=== PATIENT | female | born 1940 | race Caucasian/White ===

== ENCOUNTER → 2024-11-16 | Outpatient (REF) | payer MEDICARE, SELFPAY ==
[2024-11-16 09:54] LABS: Hematocrit 39.2 % (37-47); Hemoglobin 12.9 g/dL (12.0-15.0); Mean Corp Hgb Conc 32.9 g/dL (32-36); Mean Corpuscular Hgb 32.1 pg (27.0-32.0); Mean Corpuscular Volume 97.5 fL (81-99); Mean Platelet Vol. 10.8 fl (6.2-12.0); Platelet Count 251 K/mm3 (150-450); RBC Distribution Width CV 13.4 % (11.6-14.6); RBC Distribution Width SD 48.3 fl (35.1-43.9); Red Blood Count 4.02 M/mm3 (4.2-5.4); White Blood Count 9.9 K/mm3 (4.4-11.0)
[2024-11-16 10:14] LABS: Anion Gap 13 (5-15); BUN 13 mg/dL (4-19); BUN/Creat Ratio 25.5 RATIO (10-20); Calcium,Total 9.4 mg/dL (7.6-11.0); Carbon Dioxide 26.4 mmol/L (21.0-32.0); Chloride 97 mmol/L (98-108); Creatinine, Serum 0.51 mg/dL (0.70-1.20); EST Glomerular Filtration Rate 92 (>60); Glucose 147 mg/dL (70-99); Potassium 3.3 mmol/L (3.3-5.1); Sodium Level 136 mmol/L (133-145)
== END ==
LOC: OLS.SW 05:00
PROVIDERS: PCP Internal Medicine; Visit Provider Internal Medicine
DX: E11.9 Type 2 diabetes mellitus without complications (principal); I10 Essential (primary) hypertension; G20.A1 Parkinson's disease without dyskinesia, without mention of fluctuations
CPT/HCPCS: 36415; 80048; 83735; 85027

== ENCOUNTER 2024-11-17 14:06 | Inpatient (IN) | payer MEDICARE, SELFPAY ==
[2024-11-17 14:06] VITALS: BP 117/37; PULSE 83; RESP 24; TEMP 36.6; O2SAT 95; BMI 43.7
[2024-11-17 14:32] VITALS: BP 118/46; PULSE 81; RESP 24; O2SAT 94
--- NOTE | 2024-11-17 14:44 | ED.VIS.GI ---
HPI HPI - GI History of Present Illness Chief Complaint: Abd Pain Narrative Narrative: 84-year-old female presents from [facility]/rehab where she has been for the last month. She states that she is had abdominal pain for the last 5 days. She denies any fevers or chills, no nausea or vomiting. She had a bowel movement today, but states that it was more loose stool. She states that it is more of a dull achy pain more on the left side of her abdomen. She states that it was rockhard previously but seems to have softened up over the last few days. Past surgical history includes total hysterectomy and prior to that she had had a bilateral tubal ligation but denies cholecystectomy or appendectomy. [facility] Medical History Parkinsons disease Diabetes Hypertension Allergy/AdvReac Type Severity Reaction Status Date / Time adhesive tape Allergy rash Verified 11/17/24 14:09 amoxicillin Allergy hives Verified 11/17/24 14:09 cephalexin Allergy Hives Verified 11/17/24 14:09 silicone Allergy Rash Verified 11/17/24 14:09 Social History Smoking Status: Unknown if ever smoked ROS ROS ED ROS Narrative Review of systems positive for abdominal pain, initially described diffusely, but more left-sided. Mild abdominal distention. Denies nausea or vomiting, fever or chills, positive loose stool today, no melena or hematochezia. No exacerbating or alleviating factors to her abdominal pain that she has been experiencing for the last 5 days. EXAM Physical Exam Narrative Exam Narrative: Afebrile. Vital signs noted. Nontoxic-appearing. Cardiovascular examination reveals a regular rate and rhythm. Lungs are clear to auscultation bilaterally anteriorly. Mild tachypnea noted on examination. The abdomen is soft without guarding or rebound with diffuse tenderness to palpation especially in the left flank to lower quadrant. Neurological examination is nonfocal and nonlateralizing. Awake, alert, oriented, and interactive. Const Vital Signs: 11/17/24 14:06 11/17/24 14:32 11/17/24 16:35 Temperature 98 F Temperature Source Temporal Pulse Rate 83 81 78 Respiratory Rate 24 H 24 H 18 Blood Pressure 117/37 L 118/46 L 131/52 H Blood Pressure Mean 63 70 78 Pulse Ox 95 94 94 Oxygen Delivery Method Room Air Room Air Room Air MDM MDM MDM Narrative Medical decision making narrative: The differential diagnosis includes but not limited to diverticulitis versus nonspecific abdominal pain versus bowel obstruction. Comprehensive workup was pursued. I do feel CT imaging is indicated. However, start really having problems with nausea and vomiting, so I have lower suspicion for a bowel obstruction/partial small bowel obstruction. I reviewed the patient's laboratory work and she has normal white count of 7.0 with hemoglobin 11.0, hematocrit 33.3, with platelet count 206. BUN normal at 13 with creatinine low at 0.54, LFTs grossly unremarkable, lipase normal at 29. I reviewed the radiology report of the CT of the abdomen and pelvis with IV contrast and there is moderate dilation of the colon with fluid and gas with transition below the distal sigmoid and rectum. Per radiology, this may reflect a combination of ileus and partial obstruction. Additionally, they comment on wall thickening of the rectum and distal sigmoid consistent with proctocolitis. I discussed the patient with Dr. Sands, who doubts obstructive process as the patient did have a stool today. She suggested that rectal examination be performed to rule out complete obstruction. I performed a chaperoned rectal examination and while uncomfortable, there was no evidence of loss of patency. Additionally, she stated that Dr. Dunn could be consulted for endoscopy. At this point in time, patient will be started on Cipro and Flagyl secondary to allergies to amoxicillin and cephalexin, discussed with the hospitalist for admission. I discussed patient with Dr. Foreman. Patient will be admitted to the general medical floor. She is in stable condition. History & Record Review Discussion w/independent historian: Patient Lab Data Attestation: I reviewed the patient's lab results. Labs: Laboratory Results - last 24 hr 11/17/24 11/17/24 14:30 16:43 WBC 7.0 RBC 3.43 L Hgb 11.0 L Hct 33.3 L MCV 97.1 MCH 32.1 H MCHC 33.0 RDW Std Deviation 47.7 H RDW Coeff of Anthony 13.3 Plt Count 206 MPV 10.5 Immature Gran % (Auto) 0.600 Neut % (Auto) 56.6 Lymph % (Auto) 26.2 [place] % (Auto) 15.3 H Eos % (Auto) 0.6 Baso % (Auto) 0.7 Absolute Neuts (auto) 4.0 Absolute Lymphs (auto) 1.84 Nucleated RBC % 0 Sodium 138 Potassium 3.4 Chloride 98 Carbon Dioxide 29.3 Anion Gap 11 BUN 13 Creatinine 0.54 L Estim Creat Clear Calc 58.41 Est GFR (MDRD) Non-Af 91 BUN/Creatinine Ratio 23.2 H Glucose 216 H Calcium 8.9 Total Bilirubin 0.29 AST 19 ALT 5 Alkaline Phosphatase 93 Total Protein 6.5 Albumin 3.4 Globulin 3.1 Albumin/Globulin Ratio 1.1 Lipase 29 Urine Color Yellow Urine Clarity Clear Urine pH 7.0 Ur Specific [place] 1.005 Urine Protein 15 H Urine Glucose (UA) Normal Urine Ketones Negative Urine Occult Blood Negative Urine Nitrite Negative Urine Bilirubin Negative Urine Urobilinogen Normal Ur Leukocyte Esterase Negative Radiography Diagnostic Testing: Clinical Impression(s) from Imaging Studies Abdomen/Pelvis CT 11/17/24 16:00 IMPRESSION: 1. Moderate to severe fluid and gaseous dilatation of the colon with gradual transition at the level of below distal sigmoid and rectal wall thickening. This may reflect a combination of ileus and partial obstruction. Presence of upstream liquid contents suggests malabsorption/diarrhea. Small bowel is nondilated. 2. Moderate wall thickening of rectum and distal sigmoid at the level of the above gradual transition may reflect focal proctocolitis, however this is not definite and clinical follow-up such as updated colonoscopy is certainly warranted to ensure no underlying rectal/colonic neoplasm is present. 3. Mildly enlarged appendix without convincing adjacent inflammation, possible normal variant, however this is not definite. Correlation with presentation and exam is necessary. 4. Distended without calcified stones, convincing inflammation, or biliary dilatation. 5. Indeterminate 10 mm RIGHT lobe hepatic lesion. Compare with any available outside imaging to assess stability. If unavailable, recommend outpatient multiphase hepatic protocol CT or MRI. 6. Suspect a tiny indeterminate 0.9 cm RIGHT adrenal nodule superimposed on background glandular hyperplasia, requiring no specific follow-up per ACR recommendations in the absence of known malignancy. Otherwise, clinical follow-up may be warranted. 7. Additional description as above. Reading Location: [id number] Management Discussion w/another healthcare provider: Hospitalist and It Desktop Support Specialist (General surgery) Discharge Plan Dx/Rx/DC Orders Clinical Impression: Proctocolitis, Ileus, Abdominal pain Disposition Disposition: Acute Care Hospital [facility]
[2024-11-17 14:56] LABS: Absolute Lymphocyte Count 1.84 X10^3/uL (0.83-4.51); Basophil# 0.05 X10^3/uL; Basophil% 0.7 % (0-1); Eosinophil# 0.04 X10^3/uL; Eosinophils% 0.6 % (0-5); Hematocrit 33.3 % (37-47); Lymphocyte # 1.84 X10^3/ul (0.83-4.51); Lymphocyte % 26.2 % (19-41); Mean Corpuscular Hgb 32.1 pg (27.0-32.0); Mean Corpuscular Volume 97.1 fL (81-99); Mean Platelet Vol. 10.5 fl (6.2-12.0); Monocyte# 1.07 X10^3/uL; Monocyte% 15.3 % (0-10); NRBC Flagged by Analyzer 0 % (0-5); Neutrophil # 3.97 X10^3/uL (2.7-7.7); Neutrophil % 56.6 % (47-70); Platelet Count 206 K/mm3 (150-450); RBC Distribution Width CV 13.3 % (11.6-14.6); RBC Distribution Width SD 47.7 fl (35.1-43.9); Red Blood Count 3.43 M/mm3 (4.2-5.4)
[2024-11-17] MEDS: Morphine 2 MG/ML Syringe IV (15:27)
[2024-11-17] MEDS: Ondansetron 4 MG/2 ML Vial IV (15:28)
[2024-11-17 15:38] LABS: ALB/GLOB Ratio 1.1 RATIO (0.9-2.4); AST(SGOT) 19 U/L (<=31); Alanine Aminotransfer ALT/SGPT 5 U/L (<=34); Albumin, Serum 3.4 g/dL (3.4-4.8); Alkaline Phosphatase 93 U/L (35-104); Anion Gap 11 (5-15); BUN 13 mg/dL (4-19); BUN/Creat Ratio 23.2 RATIO (10-20); Calcium,Total 8.9 mg/dL (7.6-11.0); Carbon Dioxide 29.3 mmol/L (21.0-32.0); Chloride 98 mmol/L (98-108); Creatinine, Serum 0.54 mg/dL (0.70-1.20); EST Glomerular Filtration Rate 91 (>60); Estimated Creatinine Clearance 58.41 ml/min (50-250); Globulin 3.1 g/dL (2.2-4.2); Glucose 216 mg/dL (70-99); Lipase 29 U/L (13-75); Potassium 3.4 mmol/L (3.3-5.1); Protein, Total 6.5 g/dL (5.9-8.4); Sodium Level 138 mmol/L (133-145); Total Bilirubin 0.29 mg/dL (0.00-1.30)
--- NOTE | 2024-11-17 16:00 | CT_ITS ---
PROCEDURE: ABDOMEN/PELVIS W IV CONT ONLY, 11/17/2024 REASON FOR EXAM: PAIN TECHNIQUE: CT abdomen and pelvis was performed with IV contrast. Multiplanar reformats were generated. IV contrast: Isovue-300 VOLUME: 92mL RADIATION DOSE SUMMARY: CTDlvol: 13.30+ 22.70 mGy DLP: 1432.82 mGycm One or more dose reduction techniques were used (e.g., Automated exposure control, adjustment of the mA and/or kV according to patient size, use of iterative reconstruction technique). COMPARISON: None FINDINGS: Exam is slightly limited by photon starvation. Mild motion limitation through the lung bases and upper abdomen. Lung bases: Atelectasis/scarring. Three-vessel coronary atherosclerosis and/or stents. Mitral and aortic annular calcification. Liver: Nonspecific capsular/subcapsular calcification and 10 mm hypodensity along the posterior RIGHT lobe. Spleen: Unremarkable. Gallbladder: Distended without calcified stones, convincing inflammation, or biliary dilatation. Pancreas: Atrophic. Adrenals: Suspect a 0.9 cm RIGHT adrenal nodule superimposed on background glandular hyperplasia. Kidneys: LEFT renal cyst. 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 Additional tiny hypodensity in the RIGHT lower pole is too small to characterize.. Bowel: Nondilated small bowel. Tortuous and gas/fluid dilated colon to the level of the sigmoid with maximum diameter 8.5 cm, tapering to normal caliber at the level the distal sigmoid rectum which demonstrate moderate wall thickening. Diverticulosis. Mildly dilated appendix to 10 mm without convincing adjacent inflammation. No radiopaque appendicolith. Lymph nodes: Unremarkable. Vasculature: Moderate to advanced atherosclerosis.. Peritoneum: Unremarkable. Bladder: Underdistended and suboptimally evaluated, grossly unremarkable. External urinary catheter.. Reproductive Organs: Hysterectomy. Body Wall: Trace nonspecific body wall edema in some areas. Bones: Multilevel spondylosis. Suspect demineralization.. CT/Abdomen/Pelvis W IV Cont ONLY IMPRESSION: 1. Moderate to severe fluid and gaseous dilatation of the colon with gradual tr ansition at the level of below distal sigmoid and rectal wall thickening. This may reflect a combination of ileus and partial ob struction. Presence of upstream liquid contents suggests malabsorption/diarrhea. Small bowel is nondilated. 2. Moderate wall thickening of rectum and distal sigmoid at the level of the ab ove gradual transition may reflect focal proctocolitis, however this is not definite and clinical follow-up such as upda ryan colonoscopy is certainly warranted to ensure no underlying rectal/colonic neoplasm is present. 3. Mildly enlarged appendix without convincing adjacent inflammation, possible normal variant, however this is not definite. Correlation with presentation and exam is necessary. 4. Distended without calcified stones, convincing inflammation, or biliary dila tation. 5. Indeterminate 10 mm RIGHT lobe hepatic lesion. Compare with any available o utside imaging to assess stability. If unavailable, recommend outpatient multiphase hepatic protocol CT or MRI. 6. Suspect a tiny indeterminate 0.9 cm RIGHT adrenal nodule superimposed on jean-claude kground glandular hyperplasia, requiring no specific follow-up per ACR recommendations in the absence of known malignancy. Otherwise, clinical follow-up may be warranted. 7. Additional description as above. Reading Location: [id number]
[2024-11-17 16:35] VITALS: BP 131/52; PULSE 78; RESP 18; O2SAT 94
[2024-11-17 16:49] LABS: Bacteria 0 SEEN /hpf (None Seen); Mucous, Urine 0 SEEN /hpf (<or=2+); Red Blood Cells-Urine 0 SEEN /hpf (0-5)
[2024-11-17 17:59] LABS: Glucose, Dipstick Normal (Normal); Ketone-Dipstick Negative (Negative); Leukocyte Esterase-Dipstick Negative /ul (Negative); Nitrite-Dipstick Negative (Negative); Occult Blood-Urine Negative /ul (Negative); Protein-Dipstick 15 mg/dl (Negative); Specific Gravity, Urine 1.005 (1.002-1.030); Urine Bilirubin Dipstick Negative (Negative); Urine Urobilinogen Normal (Normal)
[2024-11-17 18:00] LABS: Color, Urine Yellow (Yellow); Urine Clarity Clear (Clear)
[2024-11-17] MEDS: metroNIDAZOLE 500 MG/100 ML BAG 100 MG IV (18:10)
[2024-11-17 18:13] VITALS: BP 143/55; PULSE 76; RESP 16; TEMP 36.3; O2SAT 94
--- NOTE | 2024-11-17 18:26 | ED.RN ---
THIS NURSE CALLED PT'S SON, HIRA, FROM CONTACTS TO ADVISE HIM OF HR ADMISSION TO THE HOSPITAL. HE WAS GIEN IFORMATION ON THE ADMISSION REASON AND WHICH ROOM/FLOOR SHE WILL BE ON.
[2024-11-17 18:33] LABS: Squamous Epithelial Cells - UA 0-5 SEEN /hpf (5-10); White Blood Cells 0-5 SEEN /hpf (0-5)
--- NOTE | 2024-11-17 18:50 | RAD_ITS ---
PROCEDURE: ABDOMEN SINGLE VIEW (PORTABLE) 11/17/2024 REASON FOR EXAM: NG TUBE PLACEMENT TECHNIQUE: Single view portable upright abdomen. COMPARISON: No relevant prior. FINDINGS: Bowel gas: Gas distended loops of small bowel. Calcifications: No pathologic intra-abdominal calcifications. Old healed granulomatous changes in the lungs. Bones: Multilevel spondylosis. Other: Nasogastric tube is coiled on itself at the T 9 level. Cardiac monitoring leads overlie the chest wall. RAD/Abdomen Single View (Portable) IMPRESSION: The nasogastric tube is coiled on itself at the T 9 level. Findings concerning for small bowel obstruction. Reading Location: [id number]
--- NOTE | 2024-11-17 18:58 | EX.PCM.CON.G ---
HPI Consult Data Date of Consult: 11/18/24 HPI Narrative Reason for Consultation: Abdominal distention abdominal pain HPI Narrative: 84-year-old female presents from [facility]/rehab where she has been for the last month. She states that she is had abdominal pain for the last 5 days. She denies any fevers or chills, no nausea or vomiting. She had a bowel movement today, but states that it was more loose stool. She states that it is more of a dull achy pain more on the left side of her abdomen. She states that it was rockhard previously but seems to have softened up over the last few days. Past surgical history includes total hysterectomy and prior to that she had had a bilateral tubal ligation but denies cholecystectomy or appendectomy. WBC 7.0, RBC 3.43 L, Hgb 11.0 L, Hct 33.3 L, MCV 97.1, Plt Count 206, Sodium 138, Potassium 3.4, Chloride 98, Carbon Dioxide 29.3, Anion Gap 11, BUN 13, Creatinine 0.54 L Glucose 216 H, Calcium 8.9, Total Bilirubin 0.29, AST 19, ALT 5, Alkaline Phosphatase 93, Total Protein 6.5, Albumin 3.4, Globulin 3.1, Lipase 29 CT/Abdomen/Pelvis W IV Cont ONLY 1. Moderate to severe fluid and gaseous dilatation of the colon with gradual transition at the level of below distal sigmoid and rectal wall thickening. This may reflect a combination of ileus and partial obstruction. Presence of upstream liquid contents suggests malabsorption/diarrhea. Small bowel is nondilated. 2. Moderate wall thickening of rectum and distal sigmoid at the level of the above gradual transition may reflect focal proctocolitis, however this is not definite and clinical follow-up such as updated colonoscopy is certainly warranted to ensure no underlying rectal/colonic neoplasm is present. ON LICENSE OF [facility] Medical History Parkinsons disease Diabetes Hypertension Home Medications ?Medication ?Instructions ?Recorded ?Last Taken ?Type acetaminophen 325 mg tablet (Pain 650 mg PO Q4H PRN pain 11/17/24 Unknown History Relief (acetaminophen)) acetaminophen 650 mg rectal 650 mg FL Q4H PRN pain 11/17/24 Unknown History suppository amlodipine 5 mg tablet 5 mg PO DAILY 11/17/24 Unknown History aspirin 81 mg tablet,delayed 81 mg PO DAILY 11/17/24 Unknown History release (Adult Low Dose Aspirin) atorvastatin 20 mg tablet 20 mg PO QHS 11/17/24 Unknown History benzonatate 100 mg capsule 100 mg PO TID PRN cough 11/17/24 Unknown History bisacodyl 10 mg rectal suppository 10 mg FL DAILY PRN constipation 11/17/24 Unknown History carbidopa 25 mg-levodopa 250 mg 1 tab PO TID 11/17/24 Unknown History tablet cholecalciferol (vitamin D3) 125 125 mcg PO FR 11/17/24 Unknown History mcg (5,000 unit) capsule furosemide 20 mg tablet (Lasix) 20 mg PO DAILY 11/17/24 Unknown History gabapentin 100 mg tablet 200 mg PO BID 11/17/24 Unknown History guaifenesin 100 mg/5 mL oral 200 mg PO Q4H PRN cough 11/17/24 Unknown History liquid (Adult Tussin Chest Congestion) hydralazine 50 mg tablet 50 mg PO TID PRN HTN 11/17/24 Unknown History insulin glargine 100 unit/mL (3 52 unit subcut QHS 11/17/24 Unknown History mL) subcutaneous pen (Lantus Solostar U-100 Insulin) insulin regular human 100 unit/mL 10 unit subcut BID 11/17/24 Unknown History injection solution (Humulin R Regular U-100 Insulin) magnesium hydroxide 400 mg/5 mL 2,400 mg PO DAILY PRN constipation 11/17/24 Unknown History oral suspension (Milk of Magnesia) metformin 500 mg tablet 500 mg PO DAILY 11/17/24 Unknown History sennosides 8.6 mg-docusate sodium 1 tab-cap PO DAILY 11/17/24 Unknown History 50 mg tablet (2-in-1 Laxative) simethicone 80 mg chewable tablet 80 mg PO BID 11/17/24 Unknown History sodium phosphates 19 gram-7 118 ml FL DAILY PRN constipation 11/17/24 Unknown History gram/118 mL enema (Enema) therapeutic multivitamin 1 tab PO DAILY 11/17/24 Unknown History tramadol 50 mg tablet 50 mg PO Q6H PRN pain 11/17/24 Unknown History Allergy/AdvReac Type Severity Reaction Status Date / Time adhesive tape Allergy rash Verified 11/17/24 14:09 amoxicillin Allergy hives Verified 11/17/24 14:09 cephalexin Allergy Hives Verified 11/17/24 14:09 silicone Allergy Rash Verified 11/17/24 14:09 Family History Other CAD (coronary artery disease) Social History Smoking Status: Never smoker ROS Constitutional Constitutional: Denies fatigue, fever(s), poor appetite, weight gain or weight loss Gastrointestinal Gastrointestinal: Denies belching, bloating, change in bowel habits, change in stool character, chewing difficulty, coffee ground emesis, constipation, cramping, diarrhea, dyspepsia, dysphagia, early satiety, excessive flatus, fecal incontinence, heartburn, hematemesis, hematochezia, hemorrhoids, loose stools, melena, nausea, odynophagia, rectal bleeding, tenesmus, vomiting or weight changes Lab / Micro Data 11/18/24 05:10 11/18/24 05:10 Labs: Laboratory Results - last 24 hr 11/17/24 14:30: WBC 7.0, RBC 3.43 L, Hgb 11.0 L, Hct 33.3 L, MCV 97.1, MCH 32.1 H, MCHC 33.0, RDW Std Deviation 47.7 H, RDW Coeff of Anthony 13.3, Plt Count 206, MPV 10.5, Immature Gran % (Auto) 0.600, Neut % (Auto) 56.6, Lymph % (Auto) 26.2, [place] % (Auto) 15.3 H, Eos % (Auto) 0.6, Baso % (Auto) 0.7, Absolute Neuts (auto) 4.0, Absolute Lymphs (auto) 1.84, Nucleated RBC % 0, Sodium 138, Potassium 3.4, Chloride 98, Carbon Dioxide 29.3, Anion Gap 11, BUN 13, Creatinine 0.54 L, Estim Creat Clear Calc 58.41, Est GFR (MDRD) Non-Af 91, BUN/Creatinine Ratio 23.2 H, Glucose 216 H, Calcium 8.9, Total Bilirubin 0.29, AST 19, ALT 5, Alkaline Phosphatase 93, Total Protein 6.5, Albumin 3.4, Globulin 3.1, Albumin/Globulin Ratio 1.1, Lipase 29 11/17/24 16:43: Urine Color Yellow, Urine Clarity Clear, Urine pH 7.0, Ur Specific [place] 1.005, Urine Protein 15 H, Urine Glucose (UA) Normal, Urine Ketones Negative, Urine Occult Blood Negative, Urine Nitrite Negative, Urine Bilirubin Negative, Urine Urobilinogen Normal, Ur Leukocyte Esterase Negative, Urine RBC 0 SEEN, Urine WBC 0-5 SEEN, Ur Squamous Epith Cells 0-5 SEEN, Urine Bacteria 0 SEEN, Urine Mucus 0 SEEN Imaging Radiology Impression Abdomen/Pelvis CT 11/17/24 16:00 IMPRESSION: 1. Moderate to severe fluid and gaseous dilatation of the colon with gradual transition at the level of below distal sigmoid and rectal wall thickening. This may reflect a combination of ileus and partial obstruction. Presence of upstream liquid contents suggests malabsorption/diarrhea. Small bowel is nondilated. 2. Moderate wall thickening of rectum and distal sigmoid at the level of the above gradual transition may reflect focal proctocolitis, however this is not definite and clinical follow-up such as updated colonoscopy is certainly warranted to ensure no underlying rectal/colonic neoplasm is present. 3. Mildly enlarged appendix without convincing adjacent inflammation, possible normal variant, however this is not definite. Correlation with presentation and exam is necessary. 4. Distended without calcified stones, convincing inflammation, or biliary dilatation. 5. Indeterminate 10 mm RIGHT lobe hepatic lesion. Compare with any available outside imaging to assess stability. If unavailable, recommend outpatient multiphase hepatic protocol CT or MRI. 6. Suspect a tiny indeterminate 0.9 cm RIGHT adrenal nodule superimposed on background glandular hyperplasia, requiring no specific follow-up per ACR recommendations in the absence of known malignancy. Otherwise, clinical follow-up may be warranted. 7. Additional description as above. Reading Location: [id number] Assessment & Plan Assessment/Plan (1) Colon distention: (2) Abdominal pain: (3) Ileus: (4) Proctocolitis: PLAN: A dilated colon on imaging in an elderly woman can indicate several conditions, including?large bowel obstruction ( which she does not have at this time), pseudo-obstruction , or toxic megacolon.?Other possibilities include?adynamic ileus,?volvus,?or other causes of bowel distension.?Diagnosis and treatment depend on the underlying cause.? Also different diagnosis is ulcerative proctitis, stercoral ulcer syndrome, diverticulitis, fecal impaction, [place] syndrome. She should undergo flexible sigmoidoscopy with biopsies. versus colonoscopy with rectal tube placement and possible stent placement. Charges/Coding Multi Select Codes Visit Charges Visit Charges: 86035 Init Hosp L3
--- NOTE | 2024-11-17 18:58 | PCM.HP.STD ---
[facility] - General General Date of Admission: 11/17/24 Date of Service: 11/17/24 Chief Complaint: Abdominal pain HPI Narrative TENISHA BREWER, is a 84 F who presents with abdominal pain. Patient has been having abdominal pain, diarrhea and increasing abdominal distention over the past several days. Got the point where he was too intense and patient presented to the emergency room. She had a CAT scan that showed moderate to severe fluid and gaseous distention of the colon with gradual transition at the level below the sigmoid and rectal wall thickening. May reflect a combination of ileus and partial obstruction. Moderate wall thickening of the rectum and distal sigmoid at the level of the above gradual transition may reflect focal proctocolitis. Dr. Sands [facility] was notified and recommended gastroenterology consultation to see about decompression with sigmoidoscopy. I discussed with Dr. Dunn who reviewed the images and recommended NG tube if the patient could tolerate, soapsuds enema and if she had stool within the place of rectal tube. That was to be performed in the emergency room prior to the patient being brought up to answer history. Patient has never had any issue like this in the past. [facility] Medical History Parkinsons disease Diabetes Hypertension Home Medications ?Medication ?Instructions ?Recorded ?Last Taken ?Type acetaminophen 325 mg tablet (Pain 650 mg PO Q4H PRN pain 11/17/24 Unknown History Relief (acetaminophen)) acetaminophen 650 mg rectal 650 mg ID Q4H PRN pain 11/17/24 Unknown History suppository amlodipine 5 mg tablet 5 mg PO DAILY 11/17/24 Unknown History aspirin 81 mg tablet,delayed 81 mg PO DAILY 11/17/24 Unknown History release (Adult Low Dose Aspirin) atorvastatin 20 mg tablet 20 mg PO QHS 11/17/24 Unknown History benzonatate 100 mg capsule 100 mg PO TID PRN cough 11/17/24 Unknown History bisacodyl 10 mg rectal suppository 10 mg ID DAILY PRN constipation 11/17/24 Unknown History carbidopa 25 mg-levodopa 250 mg 1 tab PO TID 11/17/24 Unknown History tablet cholecalciferol (vitamin D3) 125 125 mcg PO FR 11/17/24 Unknown History mcg (5,000 unit) capsule furosemide 20 mg tablet (Lasix) 20 mg PO DAILY 11/17/24 Unknown History gabapentin 100 mg tablet 200 mg PO BID 11/17/24 Unknown History guaifenesin 100 mg/5 mL oral 200 mg PO Q4H PRN cough 11/17/24 Unknown History liquid (Adult Tussin Chest Congestion) hydralazine 50 mg tablet 50 mg PO TID PRN HTN 11/17/24 Unknown History insulin glargine 100 unit/mL (3 52 unit subcut QHS 11/17/24 Unknown History mL) subcutaneous pen (Lantus Solostar U-100 Insulin) insulin regular human 100 unit/mL 10 unit subcut BID 11/17/24 Unknown History injection solution (Humulin R Regular U-100 Insulin) magnesium hydroxide 400 mg/5 mL 2,400 mg PO DAILY PRN constipation 11/17/24 Unknown History oral suspension (Milk of Magnesia) metformin 500 mg tablet 500 mg PO DAILY 11/17/24 Unknown History sennosides 8.6 mg-docusate sodium 1 tab-cap PO DAILY 11/17/24 Unknown History 50 mg tablet (2-in-1 Laxative) simethicone 80 mg chewable tablet 80 mg PO BID 11/17/24 Unknown History sodium phosphates 19 gram-7 118 ml ID DAILY PRN constipation 11/17/24 Unknown History gram/118 mL enema (Enema) therapeutic multivitamin 1 tab PO DAILY 11/17/24 Unknown History tramadol 50 mg tablet 50 mg PO Q6H PRN pain 11/17/24 Unknown History Allergy/AdvReac Type Severity Reaction Status Date / Time adhesive tape Allergy rash Verified 11/17/24 14:09 amoxicillin Allergy hives Verified 11/17/24 14:09 cephalexin Allergy Hives Verified 11/17/24 14:09 silicone Allergy Rash Verified 11/17/24 14:09 Family History (Updated 11/17/24 @ 19:[address] Anant Foreman DO) Other CAD (coronary artery disease) Social History (Updated 11/17/24 @ 19:[address] Anant Foreman DO) Smoking Status: Never smoker ROS ROS Narrative No fever or chills. No vomiting. All review of systems were negative except as mentioned above in the history of present illness and the other review of systems. Vital Signs Vital Signs Vital Signs: 11/17/24 14:06 11/17/24 14:32 11/17/24 16:35 Temperature 36.6 C Temperature Source Temporal Pulse Rate 83 81 78 Respiratory Rate 24 H 24 H 18 Blood Pressure 117/37 L 118/46 L 131/52 H Blood Pressure Mean 63 70 78 Pulse Ox 95 94 94 Oxygen Delivery Method Room Air Room Air Room Air 11/17/24 18:13 11/17/24 18:13 Temperature 36.3 C L Temperature Source Pulse Rate 76 76 Respiratory Rate 16 16 Blood Pressure 143/55 H 143/55 H Blood Pressure Mean 84 84 Pulse Ox 94 94 Oxygen Delivery Method Room Air Weight Weight: 105 kg Body Mass Index (BMI) 43.7 Physical Exam Const alert Constitutional Narrative: Uncomfortable but nontoxic. Hard of hearing. Afebrile. HEENT normocephalic and head/scalp atraumatic Resp normal respiratory effort, no retractions, no use of accessory muscles and clear to auscultation bilaterally Cardio regular rate, regular rhythm, S1 normal heart sound and S2 normal heart sound GI GI Narrative: Distended, tender. High-pitched bowel sounds. Extremity Extremity Narrative: Bilateral lower extremity edema with lymphedema wraps in place. Neuro moves all extremities Sensorium / Orientation: awake and alert Psych affect normal Results Lab / Micro Data Attestation: I reviewed the patient's lab results. 11/17/24 14:30 11/17/24 14:30 Labs: Laboratory Results - last 24 hr 11/17/24 14:30: WBC 7.0, RBC 3.43 L, Hgb 11.0 L, Hct 33.3 L, MCV 97.1, MCH 32.1 H, MCHC 33.0, RDW Std Deviation 47.7 H, RDW Coeff of Anthony 13.3, Plt Count 206, MPV 10.5, Immature Gran % (Auto) 0.600, Neut % (Auto) 56.6, Lymph % (Auto) 26.2, [place] % (Auto) 15.3 H, Eos % (Auto) 0.6, Baso % (Auto) 0.7, Absolute Neuts (auto) 4.0, Absolute Lymphs (auto) 1.84, Nucleated RBC % 0, Sodium 138, Potassium 3.4, Chloride 98, Carbon Dioxide 29.3, Anion Gap 11, BUN 13, Creatinine 0.54 L, Estim Creat Clear Calc 58.41, Est GFR (MDRD) Non-Af 91, BUN/Creatinine Ratio 23.2 H, Glucose 216 H, Calcium 8.9, Total Bilirubin 0.29, AST 19, ALT 5, Alkaline Phosphatase 93, Total Protein 6.5, Albumin 3.4, Globulin 3.1, Albumin/Globulin Ratio 1.1, Lipase 29 11/17/24 16:43: Urine Color Yellow, Urine Clarity Clear, Urine pH 7.0, Ur Specific [place] 1.005, Urine Protein 15 H, Urine Glucose (UA) Normal, Urine Ketones Negative, Urine Occult Blood Negative, Urine Nitrite Negative, Urine Bilirubin Negative, Urine Urobilinogen Normal, Ur Leukocyte Esterase Negative, Urine RBC 0 SEEN, Urine WBC 0-5 SEEN, Ur Squamous Epith Cells 0-5 SEEN, Urine Bacteria 0 SEEN, Urine Mucus 0 SEEN Imaging Radiology Impression Abdomen/Pelvis CT 11/17/24 16:00 IMPRESSION: 1. Moderate to severe fluid and gaseous dilatation of the colon with gradual transition at the level of below distal sigmoid and rectal wall thickening. This may reflect a combination of ileus and partial obstruction. Presence of upstream liquid contents suggests malabsorption/diarrhea. Small bowel is nondilated. 2. Moderate wall thickening of rectum and distal sigmoid at the level of the above gradual transition may reflect focal proctocolitis, however this is not definite and clinical follow-up such as updated colonoscopy is certainly warranted to ensure no underlying rectal/colonic neoplasm is present. 3. Mildly enlarged appendix without convincing adjacent inflammation, possible normal variant, however this is not definite. Correlation with presentation and exam is necessary. 4. Distended without calcified stones, convincing inflammation, or biliary dilatation. 5. Indeterminate 10 mm RIGHT lobe hepatic lesion. Compare with any available outside imaging to assess stability. If unavailable, recommend outpatient multiphase hepatic protocol CT or MRI. 6. Suspect a tiny indeterminate 0.9 cm RIGHT adrenal nodule superimposed on background glandular hyperplasia, requiring no specific follow-up per ACR recommendations in the absence of known malignancy. Otherwise, clinical follow-up may be warranted. 7. Additional description as above. Reading Location: [id number] Assessment & Plan Assessment/Plan (1) Colon distention: PLAN: Discussed with Dr. Sands, who does not feel patient has a volvulus and recommended GI consultation so that patient may have more readily available possible sigmoidoscopy neck to be performed by gastroenterology rather than general surgery as would not be performed until later in the day. I discussed with Dr. Wallace of gastroenterology who reviewed the images recommend NG tube and soapsuds enema and did have bowel movement with a soapsuds enema then to proceed with a rectal tube. I discussed with the [facility] 3 charge nurse who states that their experience of putting rectal tubes is rather limited so I spoke with the emergency room physician to see if they can do that before the patient can be brought up to the hospital floor. Concern for possible colitis and patient continue with ciprofloxacin and metronidazole for now. Additionally avoid narcotics. Pain control with acetaminophen and ketorolac for now. Consult both general surgery and gastroenterology. N.p.o. for now. IV fluids. PLAN: Plan Chronic conditions Obesity class III: Complicates care and recovery Diabetes mellitus type 2, insulin-dependent. Cut glargine in half. Hold prandial insulin. Sliding scale insulin. Parkinson's disease: Continue Sinemet VTE prophylaxis with SCDs. Holding off on chemical prophylaxis given potential for intervention. CODE STATUS: Addressed with the patient. Patient wishes to be full code. Charges/Coding Visit Charges Inpatient E&M: 40533 Init Hosp L3
--- NOTE | 2024-11-17 19:00 | RAD_ITS ---
PROCEDURE: ABDOMEN SINGLE VIEW (PORTABLE) 11/17/2024 REASON FOR EXAM: NG PLACEMENT 2 TECHNIQUE: Single view abdomen. COMPARISON: None FINDINGS: Bowel gas: Distal tip of the feeding tube is not visualized due to position. Recommend repeat examination. Limited evaluation of the bowel loops. Few prominent-mildly dilated bowel loops are noted. Calcifications: No suspicious calcifications. Bones: There are degenerative changes of the spine. Other: Bilateral interstitial thickening. Bibasilar atelectasis. RAD/Abdomen Single View (Portable) IMPRESSION: See above [facility]
--- NOTE | 2024-11-17 19:06 | ED.RN ---
DR MOSQUERA ADVISED THAT THE NG WAS UNSUCCESSFUL. AFTER 2 ATTEMPTS THE END OF THE TUBE KEPT COILING BACK INTO THE ESOPHAGUS. PT DID NOT TOLERATE WELL. DR MOSQUERA SAID WE CAN HOLD AND MOVE FORWARD WITH SOAP SUDS.
[2024-11-17] MEDS: Ciprofloxacin 400 MG/200 ML BAG 200 MG IV (19:22)
[2024-11-17 20:00] VITALS: BP 117/47; PULSE 76; RESP 19; O2SAT 94
--- NOTE | 2024-11-17 20:33 | ED.RN ---
This RN spoke with Dr Dunn for clarification as to if patient needs rectal tube placement, he was updated that patient had a soap suds edema with results of stool and air. Per Dr Dunn patient does not require a rectal tube at this time.
[2024-11-17 21:13] VITALS: BP 117/48; PULSE 75; RESP 18; TEMP 36.7; O2SAT 95
[2024-11-17 21:19] VITALS: BMI 43.7
[2024-11-17] MEDS: Ketorolac 15 MG/ML Vial IV (22:03)
[2024-11-17] MEDS: 0.9% Normal Saline (1000mL) 1,000 ML 100 ML IV (22:03)
[2024-11-17] MEDS: Carbidopa/Levodopa 25/250 Tablet PO (22:04)
[2024-11-17] MEDS: Gabapentin 100 MG Capsule 200 MG PO (22:04)
[2024-11-17 22:35] LABS: Bedside Glucose 102 mg/dL (74-106)
[2024-11-18] VITALS (13 sets, daily range): BP systolic 111–145; BP diastolic 44–65; PULSE 69–84; RESP 16–18; TEMP 36.7–37; O2SAT 92–98; BMI 43.7
[2024-11-18 00:32] LABS: Bedside Glucose 112 mg/dL (74-106)
[2024-11-18] MEDS: metroNIDAZOLE 500 MG/100 ML BAG 100 MG IV ×3 (05:29→23:00)
[2024-11-18] MEDS: Carbidopa/Levodopa 25/250 Tablet PO ×2 (05:30→23:00)
[2024-11-18 06:02] LABS: Absolute Lymphocyte Count 2.49 X10^3/uL (0.83-4.51); Absolute Neutrophil Count 3.3 X10^3/uL (2.0-7.7); Basophil# 0.05 X10^3/uL; Basophil% 0.7 % (0-1); Eosinophil# 0.07 X10^3/uL; Hematocrit 30.9 % (37-47); Hemoglobin 10.3 g/dL (12.0-15.0); Lymphocyte # 2.49 X10^3/ul (0.83-4.51); Lymphocyte % 35.7 % (19-41); Mean Corp Hgb Conc 33.3 g/dL (32-36); Mean Corpuscular Hgb 32.5 pg (27.0-32.0); Mean Corpuscular Volume 97.5 fL (81-99); Mean Platelet Vol. 10.7 fl (6.2-12.0); Monocyte# 1.03 X10^3/uL; Monocyte% 14.8 % (0-10); NRBC Flagged by Analyzer 0 % (0-5); Neutrophil # 3.31 X10^3/uL (2.7-7.7); Neutrophil % 47.5 % (47-70); Platelet Count 184 K/mm3 (150-450); RBC Distribution Width CV 13.4 % (11.6-14.6); RBC Distribution Width SD 47.5 fl (35.1-43.9); Red Blood Count 3.17 M/mm3 (4.2-5.4)
[2024-11-18 06:56] LABS: ALB/GLOB Ratio 1.1 RATIO (0.9-2.4); AST(SGOT) 20 U/L (<=31); Alanine Aminotransfer ALT/SGPT < 5 U/L (<=34); Albumin, Serum 3.1 g/dL (3.4-4.8); Alkaline Phosphatase 82 U/L (35-104); Anion Gap 9 (5-15); BUN 11 mg/dL (4-19); BUN/Creat Ratio 22.5 RATIO (10-20); Calcium,Total 8.6 mg/dL (7.6-11.0); Chloride 102 mmol/L (98-108); Creatinine, Serum 0.49 mg/dL (0.70-1.20); EST Glomerular Filtration Rate 93 (>60); Estimated Creatinine Clearance 58.41 ml/min (50-250); Globulin 2.9 g/dL (2.2-4.2); Glucose 84 mg/dL (70-99); Potassium 3.5 mmol/L (3.3-5.1); Protein, Total 5.9 g/dL (5.9-8.4); Sodium Level 139 mmol/L (133-145); Total Bilirubin 0.31 mg/dL (0.00-1.30)
[2024-11-18 07:29] LABS: Bedside Glucose 84 mg/dL (74-106)
--- NOTE | 2024-11-18 07:34 | PCM.PN.HOSP ---
Reason for Visit Reason for Visit: Diagnoses Other specified diseases of intestine (11/17/24) Subjective Subjective Having some BM. Abdomen still distended, but softer. Objective Data Objective Data Vital Signs: Vital Signs Temp Pulse Resp BP Pulse Ox O2 Del Method 36.8 C 73 18 124/55 H 92 Room Air 11/18/24 05:23 11/18/24 05:23 11/18/24 05:23 11/18/24 05:23 11/18/24 05:23 11/18/24 05:23 Oxygen Delivery Method Room Air Weight: 105 kg Body Mass Index (BMI) 43.7 Intake & Output: Intake and Output for Last 24 Hours 11/16/24 11/17/24 11/18/24 23:59 23:59 23:59 Intake Total 300 / 300 140 / 140 Output Total 400 / 400 Balance 300 / 300 -260 / -260 Lab / Micro Data 11/18/24 05:10 11/18/24 05:10 Labs: Laboratory Results - last 24 hr 11/17/24 14:30: WBC 7.0, RBC 3.43 L, Hgb 11.0 L, Hct 33.3 L, MCV 97.1, MCH 32.1 H, MCHC 33.0, RDW Std Deviation 47.7 H, RDW Coeff of Anthony 13.3, Plt Count 206, MPV 10.5, Immature Gran % (Auto) 0.600, Neut % (Auto) 56.6, Lymph % (Auto) 26.2, [place] % (Auto) 15.3 H, Eos % (Auto) 0.6, Baso % (Auto) 0.7, Absolute Neuts (auto) 4.0, Absolute Lymphs (auto) 1.84, Nucleated RBC % 0, Sodium 138, Potassium 3.4, Chloride 98, Carbon Dioxide 29.3, Anion Gap 11, BUN 13, Creatinine 0.54 L, Estim Creat Clear Calc 58.41, Est GFR (MDRD) Non-Af 91, BUN/Creatinine Ratio 23.2 H, Glucose 216 H, Calcium 8.9, Total Bilirubin 0.29, AST 19, ALT 5, Alkaline Phosphatase 93, Total Protein 6.5, Albumin 3.4, Globulin 3.1, Albumin/Globulin Ratio 1.1, Lipase 29 11/17/24 16:43: Urine Color Yellow, Urine Clarity Clear, Urine pH 7.0, Ur Specific [place] 1.005, Urine Protein 15 H, Urine Glucose (UA) Normal, Urine Ketones Negative, Urine Occult Blood Negative, Urine Nitrite Negative, Urine Bilirubin Negative, Urine Urobilinogen Normal, Ur Leukocyte Esterase Negative, Urine RBC 0 SEEN, Urine WBC 0-5 SEEN, Ur Squamous Epith Cells 0-5 SEEN, Urine Bacteria 0 SEEN, Urine Mucus 0 SEEN 11/17/24 21:59: POC Glucose 102 11/18/24 00:12: POC Glucose 112 H 11/18/24 05:10: WBC 7.0, RBC 3.17 L, Hgb 10.3 L, Hct 30.9 L, MCV 97.5, MCH 32.5 H, MCHC 33.3, RDW Std Deviation 47.5 H, RDW Coeff of Anthony 13.4, Plt Count 184, MPV 10.7, Immature Gran % (Auto) 0.300, Neut % (Auto) 47.5, Lymph % (Auto) 35.7, [place] % (Auto) 14.8 H, Eos % (Auto) 1.0, Baso % (Auto) 0.7, Absolute Neuts (auto) 3.3, Absolute Lymphs (auto) 2.49, Nucleated RBC % 0, Sodium 139, Potassium 3.5, Chloride 102, Carbon Dioxide 27.0, Anion Gap 9, BUN 11, Creatinine 0.49 L, Estim Creat Clear Calc 58.41, Est GFR (MDRD) Non-Af 93, BUN/Creatinine Ratio 22.5 H, Glucose 84, Calcium 8.6, Total Bilirubin 0.31, AST 20, ALT < 5, Alkaline Phosphatase 82, Total Protein 5.9, Albumin 3.1 L, Globulin 2.9, Albumin/Globulin Ratio 1.1 11/18/24 05:28: POC Glucose 84 Radiography Diagnostic Testing: Radiology Impression Abdomen/Pelvis CT 11/17/24 16:00 IMPRESSION: 1. Moderate to severe fluid and gaseous dilatation of the colon with gradual transition at the level of below distal sigmoid and rectal wall thickening. This may reflect a combination of ileus and partial obstruction. Presence of upstream liquid contents suggests malabsorption/diarrhea. Small bowel is nondilated. 2. Moderate wall thickening of rectum and distal sigmoid at the level of the above gradual transition may reflect focal proctocolitis, however this is not definite and clinical follow-up such as updated colonoscopy is certainly warranted to ensure no underlying rectal/colonic neoplasm is present. 3. Mildly enlarged appendix without convincing adjacent inflammation, possible normal variant, however this is not definite. Correlation with presentation and exam is necessary. 4. Distended without calcified stones, convincing inflammation, or biliary dilatation. 5. Indeterminate 10 mm RIGHT lobe hepatic lesion. Compare with any available outside imaging to assess stability. If unavailable, recommend outpatient multiphase hepatic protocol CT or MRI. 6. Suspect a tiny indeterminate 0.9 cm RIGHT adrenal nodule superimposed on background glandular hyperplasia, requiring no specific follow-up per ACR recommendations in the absence of known malignancy. Otherwise, clinical follow-up may be warranted. 7. Additional description as above. Reading Location: [id number] 11/17/24 18:50 IMPRESSION: The nasogastric tube is coiled on itself at the T 9 level. Findings concerning for small bowel obstruction. Reading Location: [facility] 11/17/24 19:00 IMPRESSION: See above Reading Location: [facility] Physical Exam Const alert and no apparent distress Constitutional Narrative: on commode. [place]. afebrile. Non-toxic. Appropriate. Resp normal respiratory effort, no retractions, no use of accessory muscles and clear to auscultation bilaterally Cardio regular rate, regular rhythm, S1 normal heart sound and S2 normal heart sound GI normal to inspection, nondistended, normoactive bowel sounds, soft to palpation, non-tender and non-distended Extremity normal to inspection and full ROM Neuro Sensorium / Orientation: awake and alert Assessment & Plan Assessment/Plan (1) Colon distention: PLAN: 11/17: Discussed with Dr. Sands, who does not feel patient has a volvulus and recommended GI consultation so that patient may have more readily available possible sigmoidoscopy neck to be performed by gastroenterology rather than general surgery as would not be performed until later in the day. I discussed with Dr. Dunn of gastroenterology who reviewed the images recommend NG tube and soapsuds enema and did have bowel movement with a soapsuds enema then to proceed with a rectal tube. I discussed with the [facility] 3 charge nurse who states that their experience of putting rectal tubes is rather limited so I spoke with the emergency room physician to see if they can do that before the patient can be brought up to the hospital floor. I then discussed with Dr. Solis in the ED about the recommendations. NGT was attempted twice, but coiled up. No further NG attempts. Soap suds enema given in the ED. 11/18: some BM with enemas, but still very distended, though softer. Concern for possible colitis and patient continue with ciprofloxacin and metronidazole for now. Additionally avoid narcotics. Pain control with acetaminophen and ketorolac for now. Consult both general surgery and gastroenterology. N.p.o. for now. IV fluids. Flex sig/colonoscopy planned for today. PLAN: Plan Chronic conditions Obesity class III: Complicates care and recovery Diabetes mellitus type 2, insulin-dependent. Cut glargine in half. Hold prandial insulin. Sliding scale insulin. Parkinson's disease: Continue Sinemet VTE prophylaxis with SCDs. Holding off on chemical prophylaxis given potential for intervention. CODE STATUS: Addressed with the patient. Patient wishes to be full code. Charges/Coding Visit Charges Inpatient E&M: 85196 Subs Hosp L2
--- NOTE | 2024-11-18 08:41 | EX.PCM.CON.S ---
Assessment & Plan Assessment/Plan (1) Colon distention: PLAN: Plan CT abdomen pelvis did question whether there is a partial obstruction or ileus as well as called some thickening of the sigmoid. I do agree with some thickening of the sigmoid however may be an overcall of the obstruction as it is at the rectum and it is typically difficult to see if it is not distended with rectal contrast or stool. Per ER physician DANIELLE was patent. Patient also has been having diarrhea and patient also had results from enema last night. Patient is planned to get a flex sig with Dr. Dunn today. No plans for acute surgical intervention currently. Norma Sands M.D. Pager: [phone] [facility] [address] [place] [address], Outpatient [place], [address] [place] [address] Office: [phone] HPI Consult Data Date of Consult: 11/18/24 HPI Narrative HPI Narrative: TENISHA BREWER is a 84 F who presents due to 5 days of diarrhea and abdominal pain per patient. Patient states prior to that she was constipated for couple days. Patient states normally she goes daily. Patient CT abdomen pelvis called some thickening of the sigmoid questionable obstruction at the rectum or ileus. Patient has been having bowel function. ER doctor did check a rectal exam and it was patent. Patient did get an enema last night and had large results per nurses. Patient states her pain is improved this morning. Denies having flatus but also states she does not normally have flatus much normally. Currently patient states pain is a little bit sore but improved. Denies any nausea or vomiting. [facility] Medical History Parkinsons disease Diabetes Hypertension Home Medications ?Medication ?Instructions ?Recorded ?Last Taken ?Type acetaminophen 325 mg tablet (Pain 650 mg PO Q4H PRN pain 11/17/24 Unknown History Relief (acetaminophen)) acetaminophen 650 mg rectal 650 mg [place] Q4H PRN pain 11/17/24 Unknown History suppository amlodipine 5 mg tablet 5 mg PO DAILY 11/17/24 Unknown History aspirin 81 mg tablet,delayed 81 mg PO DAILY 11/17/24 Unknown History release (Adult Low Dose Aspirin) atorvastatin 20 mg tablet 20 mg PO QHS 11/17/24 Unknown History benzonatate 100 mg capsule 100 mg PO TID PRN cough 11/17/24 Unknown History bisacodyl 10 mg rectal suppository 10 mg [place] DAILY PRN constipation 11/17/24 Unknown History carbidopa 25 mg-levodopa 250 mg 1 tab PO TID 11/17/24 Unknown History tablet cholecalciferol (vitamin D3) 125 125 mcg PO FR 11/17/24 Unknown History mcg (5,000 unit) capsule furosemide 20 mg tablet (Lasix) 20 mg PO DAILY 11/17/24 Unknown History gabapentin 100 mg tablet 200 mg PO BID 11/17/24 Unknown History guaifenesin 100 mg/5 mL oral 200 mg PO Q4H PRN cough 11/17/24 Unknown History liquid (Adult Tussin Chest Congestion) hydralazine 50 mg tablet 50 mg PO TID PRN HTN 11/17/24 Unknown History insulin glargine 100 unit/mL (3 52 unit subcut QHS 11/17/24 Unknown History mL) subcutaneous pen (Lantus Solostar U-100 Insulin) insulin regular human 100 unit/mL 10 unit subcut BID 11/17/24 Unknown History injection solution (Humulin R Regular U-100 Insulin) magnesium hydroxide 400 mg/5 mL 2,400 mg PO DAILY PRN constipation 11/17/24 Unknown History oral suspension (Milk of Magnesia) metformin 500 mg tablet 500 mg PO DAILY 11/17/24 Unknown History sennosides 8.6 mg-docusate sodium 1 tab-cap PO DAILY 11/17/24 Unknown History 50 mg tablet (2-in-1 Laxative) simethicone 80 mg chewable tablet 80 mg PO BID 11/17/24 Unknown History sodium phosphates 19 gram-7 118 ml [place] DAILY PRN constipation 11/17/24 Unknown History gram/118 mL enema (Enema) therapeutic multivitamin 1 tab PO DAILY 11/17/24 Unknown History tramadol 50 mg tablet 50 mg PO Q6H PRN pain 11/17/24 Unknown History Allergy/AdvReac Type Severity Reaction Status Date / Time adhesive tape Allergy rash Verified 11/17/24 14:09 amoxicillin Allergy hives Verified 11/17/24 14:09 cephalexin Allergy Hives Verified 11/17/24 14:09 silicone Allergy Rash Verified 11/17/24 14:09 Family History Other CAD (coronary artery disease) Social History Smoking Status: Never smoker ROS Constitutional Constitutional: Denies anorexia ENT HEENT: Denies dysphagia Cardiovascular Cardiovascular: Denies chest pain Respiratory/Chest Respiratory/Chest: Denies cough Gastrointestinal Gastrointestinal: Reports abdominal pain, constipation and diarrhea; Denies nausea or vomiting Genitourinary Genitourinary: Denies hematuria Integumentary Integumentary: Denies jaundice Hematologic/Lymphatic Hematologic/Lymphatic: Denies easy bleeding Physical Exam Const alert, oriented x3 and no apparent distress HEENT normocephalic and head/scalp atraumatic Resp normal respiratory effort Cardio regular rate GI soft to palpation and non-tender GI Narrative: Mild distention Palpation: Negative for guarding Extremity no clubbing, cyanosis or edema Neuro CN's II-XII intact bilaterally Psych mental status grossly normal Lab / Micro Data 11/18/24 05:10 11/18/24 05:10 Labs: Laboratory Results - last 24 hr 11/17/24 14:30: WBC 7.0, RBC 3.43 L, Hgb 11.0 L, Hct 33.3 L, MCV 97.1, MCH 32.1 H, MCHC 33.0, RDW Std Deviation 47.7 H, RDW Coeff of Anthony 13.3, Plt Count 206, MPV 10.5, Immature Gran % (Auto) 0.600, Neut % (Auto) 56.6, Lymph % (Auto) 26.2, [place] % (Auto) 15.3 H, Eos % (Auto) 0.6, Baso % (Auto) 0.7, Absolute Neuts (auto) 4.0, Absolute Lymphs (auto) 1.84, Nucleated RBC % 0, Sodium 138, Potassium 3.4, Chloride 98, Carbon Dioxide 29.3, Anion Gap 11, BUN 13, Creatinine 0.54 L, Estim Creat Clear Calc 58.41, Est GFR (MDRD) Non-Af 91, BUN/Creatinine Ratio 23.2 H, Glucose 216 H, Calcium 8.9, Total Bilirubin 0.29, AST 19, ALT 5, Alkaline Phosphatase 93, Total Protein 6.5, Albumin 3.4, Globulin 3.1, Albumin/Globulin Ratio 1.1, Lipase 29 05/06/25 16:43: Urine Color Yellow, Urine Clarity Clear, Urine pH 7.0, Ur Specific [place] 1.005, Urine Protein 15 H, Urine Glucose (UA) Normal, Urine Ketones Negative, Urine Occult Blood Negative, Urine Nitrite Negative, Urine Bilirubin Negative, Urine Urobilinogen Normal, Ur Leukocyte Esterase Negative, Urine RBC 0 SEEN, Urine WBC 0-5 SEEN, Ur Squamous Epith Cells 0-5 SEEN, Urine Bacteria 0 SEEN, Urine Mucus 0 SEEN 11/17/24 21:59: POC Glucose 102 11/18/24 00:12: POC Glucose 112 H 11/18/24 05:10: WBC 7.0, RBC 3.17 L, Hgb 10.3 L, Hct 30.9 L, MCV 97.5, MCH 32.5 H, MCHC 33.3, RDW Std Deviation 47.5 H, RDW Coeff of Anthony 13.4, Plt Count 184, MPV 10.7, Immature Gran % (Auto) 0.300, Neut % (Auto) 47.5, Lymph % (Auto) 35.7, [place] % (Auto) 14.8 H, Eos % (Auto) 1.0, Baso % (Auto) 0.7, Absolute Neuts (auto) 3.3, Absolute Lymphs (auto) 2.49, Nucleated RBC % 0, Sodium 139, Potassium 3.5, Chloride 102, Carbon Dioxide 27.0, Anion Gap 9, BUN 11, Creatinine 0.49 L, Estim Creat Clear Calc 58.41, Est GFR (MDRD) Non-Af 93, BUN/Creatinine Ratio 22.5 H, Glucose 84, Calcium 8.6, Total Bilirubin 0.31, AST 20, ALT < 5, Alkaline Phosphatase 82, Total Protein 5.9, Albumin 3.1 L, Globulin 2.9, Albumin/Globulin Ratio 1.1 11/18/24 05:28: POC Glucose 84 Imaging Radiology Impression Abdomen/Pelvis CT 11/17/24 16:00 IMPRESSION: 1. Moderate to severe fluid and gaseous dilatation of the colon with gradual transition at the level of below distal sigmoid and rectal wall thickening. This may reflect a combination of ileus and partial obstruction. Presence of upstream liquid contents suggests malabsorption/diarrhea. Small bowel is nondilated. 2. Moderate wall thickening of rectum and distal sigmoid at the level of the above gradual transition may reflect focal proctocolitis, however this is not definite and clinical follow-up such as updated colonoscopy is certainly warranted to ensure no underlying rectal/colonic neoplasm is present. 3. Mildly enlarged appendix without convincing adjacent inflammation, possible normal variant, however this is not definite. Correlation with presentation and exam is necessary. 4. Distended without calcified stones, convincing inflammation, or biliary dilatation. 5. Indeterminate 10 mm RIGHT lobe hepatic lesion. Compare with any available outside imaging to assess stability. If unavailable, recommend outpatient multiphase hepatic protocol CT or MRI. 6. Suspect a tiny indeterminate 0.9 cm RIGHT adrenal nodule superimposed on background glandular hyperplasia, requiring no specific follow-up per ACR recommendations in the absence of known malignancy. Otherwise, clinical follow-up may be warranted. 7. Additional description as above. Reading Location: [id number] 11/17/24 18:50 IMPRESSION: The nasogastric tube is coiled on itself at the T 9 level. Findings concerning for small bowel obstruction. Reading Location: [facility] 11/17/24 19:00 IMPRESSION: See above Reading Location: [facility] Charges/Coding Visit Charges Inpatient E&M: 09796 Init Hosp L3
[2024-11-18] MEDS: Ciprofloxacin 400 MG/200 ML BAG 200 MG IV ×2 (09:13→21:34)
--- NOTE | 2024-11-18 09:41 | NURSING ---
attempt to reach son but his phone is not set up for voice mails and he did not answer
[2024-11-18 10:15] LABS: Partial Thromboplast Time 27.7 Seconds (24.1-36.2)
[2024-11-18 10:58] LABS: Hemoglobin A1c 7.2 % (<=5.6)
[2024-11-18 12:18] LABS: Bedside Glucose 131 mg/dL (74-106)
--- NOTE | 2024-11-18 13:42 | CASEMGMT ---
Social Work SW met with pt and introduced self and role of SW. Pt confirms that she was admitted from [facility] where she was receiving skilled services for the last month. Pt states that she plans to return there upon dc from the hospital to continue rehabilitation. DC assistant business manager notified and to send updates to [facility]. Plan: Return to [facility], pending new TUAN Presley
--- NOTE | 2024-11-18 13:53 | CASEMGMT ---
Addendum entered by Milena Muñoz 11/18/24 15:24: [facility] would like to skill but can accept pt back while waiting on it. Milena Muñoz DC Planning Asst. Original Note: Discharge Planning Updates sent to [facility] with note asking if precert is needed. Milena Muñoz DC Planning Asst.
--- NOTE | 2024-11-18 15:28 | PCM.PRE.AN2 ---
ASA Classification* ASA Classification ASA Classification: 3 ( NO VERSED; pt has HTN, T2DM, Parkinson's dz ) Assessment & Plan Anesthesia* Anesthesia Assessment Anesthesia Assessment: Discussed sedation and/or anesthesia options, risks, benefits, and alternatives with patient/parents/legal guardian/POA. Questions invited. The patient/parents/legal guardian/POA seems to understand and agrees to proceed with anesthesia plan. Reviewed the physical assessment, medical history, allergy history and patient home medications list prior to surgery/procedure/anesthetic and documented any changes. Performed airway and anesthesia risk assessments. Anesthesia Type Anesthesia Type: General History Source History Obtained from:: Patient and Chart Anesthesia Focused Assessment* Temperature: 98.0 F Pulse Rate: 82 Blood Pressure: 141/57 Respiratory Rate: 18 Pulse Ox: 95 Oxygen Delivery Method: Room Air Airway Assessment Mouth opens: 2 cm Mallampati Score: III Teeth Condition: Intact and Missing Neck Range of motion (ROM): Limited ROM Focused Labs Anesthesia Preop lab: CBC WBC 7.0 K/mm3 (4.4-11.0) 11/18/24 05:10 11/18/24 RBC 3.17 M/mm3 (4.2-5.4) L 11/18/24 05:10 11/18/24 Hgb 10.3 g/dL (12.0-15.0) L 11/18/24 05:10 11/18/24 Hct 30.9 % (37-47) L 11/18/24 05:10 11/18/24 Plt Count 184 K/mm3 (150-450) 11/18/24 05:10 11/18/24 CHEMISTRY Potassium 3.5 mmol/L (3.3-5.1) 11/18/24 05:10 11/18/24 Sodium 139 mmol/L (133-145) 11/18/24 05:10 11/18/24 Magnesium 2.0 mg/dL (1.5-2.2) 11/16/24 07:10 11/16/24 BUN 11 mg/dL (4-19) 11/18/24 05:10 11/18/24 Creatinine 0.49 mg/dL (0.70-1.20) L 11/18/24 05:10 11/18/24 Glucose 84 mg/dL (70-99) 11/18/24 05:10 11/18/24 POC Glucose 131 mg/dL (74-106) H 11/18/24 11:42 11/18/24 TSH 2.420 uIU/mL (0.300-4.200) 10/26/24 05:05 10/26/24 COAG Pre-Assessment Diagnosis/Proposed Procedure Planned Operative Procedure(s): Flex Sigmoidoscopy Anesthesia History Anesthesia History - armor officer: Anesthesia History - armor officer Hx Hospitalization Any Problems With Anesthesia No 11/18/24 08:50 Cholinesterase deficiency No 11/18/24 08:50 You/Your Family Experience No 11/18/24 08:50 fever (hyperthermia) with Relationship Recent Exposure to Contagious No 11/18/24 08:50 Disease Does patient have nerve No 11/18/24 08:50 stimulator Patient instructed to have No 11/18/24 08:50 device shut off --Does patient have Pacemaker No 11/18/24 15:05 or ICD? When Was Last Pacemaker Check QUESTION #4 FULL TEXT: You/Your Family Experience fever (hyperthermia) with Anesthesia Last Oral Intake Last Oral intake: Last Oral Intake NPO since 08:00 11/18/24 15:05 Meds taken in AM with sips of water? Meds patient instructed to take am of surgery PONV PONV - armor officer: PONV - armor officer Female HX of Motion Sickness HX of N/V After Surgery Non-Smoker Duration of Surgery greater than 60 minutes Number of Risk Factors PONV Score Height & Weight Height & Weight: Anesthesia: Height & Weight Height 5 ft 1 in 11/18/24 15:11 Weight: 105 kg 11/18/24 15:11 Body Mass Index (BMI) 43.7 11/18/24 15:05 Respiratory Assessment Respiratory Assessment - armor officer: Respiratory Tract Infection Hx - armor officer Hx Respiratory Tract Infection No 11/18/24 08:50 STOP Sleep Apnea STOP Sleep Apnea - armor officer: STOP Sleep Apnea - armor officer Hx Hypertension Yes 11/17/24 21:22 Hx Sleep Apnea No 11/17/24 21:22 CPAP BIPAP Do you snore loudly (louder No 11/17/24 21:22 than talking or can be heard Do you often feel tired/ No 11/17/24 21:22 fatigued/ sleepy during daytime? Has anyone observed you stop No 11/17/24 21:22 breathing during sleep? STOP Results Negative 11/17/24 21:22 QUESTION #5 FULL TEXT : Do you snore loudly (louder than talking or can be heard through closed doors)? Tobacco Use History Tobacco Use History - armor officer: Tobacco Use History - armor officer Tobacco Use Smoking Status Never smoker 11/17/24 21:22 Hx Tobacco Use No 11/17/24 21:22 Years Smoking Packs Smoked per Day Smoking Cessation Date was within the last 15 years Hx Smoking Cessation Date Hx Smoking Cessation Counseling Hematologic Medial History Hematologic Hx - armor officer: Hematologic Medical Hx - credit cashier Hx of Blood Transfusion No 11/17/24 21:22 Hx of Transfusion in last 3 No 11/17/24 21:22 Months Date of Last Transfusion (if within last 3 months) Ever experience any problems No 11/17/24 21:22 with transfusion(s)? Specify any problems Hx of Preganancy in last 3 N/A 11/17/24 21:22 Months Nurse Filling Out Transfusion CSIGNORIN 11/17/24 21:22 & Questions: Date: 11/17/24 11/17/24 21:22 Time: 11/17/24 21:22 Patient unable to answer at this time (ie. confused, unrespo /Reproduction History /Reproductive History - armor officer: /Reproductive Hx- armor officer Hx Now Gestational Age (in weeks): EDC: Hx Hx Para Hx Section SAB Active Medications Active Medications: Current Medications Generic Name Dose Route Start Last Admin Trade Name Freq PRN Reason Stop Dose Admin Acetaminophen 650 mg 11/17/24 20:59 Acetaminophen 325 Mg Tablet PO Q4H PRN PRN Pain Score 1-10 Acetaminophen 650 mg 11/17/24 20:59 Acetaminophen 650 Mg Suppository RC Q4H PRN PRN pain Amlodipine Besylate 5 mg 11/18/24 10:00 11/18/24 09:12 Amlodipine 5 Mg Tablet PO Not Given DAILY COUNTS INCLUDE 234 BEDS AT THE [facility] Protocol Aspirin 81 mg 11/18/24 08:00 11/18/24 09:10 Aspirin E.C. 81 Mg Tablet PO Not Given BREAKFAST THANG Benzonatate 100 mg 11/17/24 20:59 Benzonatate 100 Mg Capsule PO TID PRN PRN cough Carbidopa/Levodopa 1 tablet 11/17/24 22:00 11/18/24 14:08 Carbidopa/Levodopa 25/250 Tablet PO Not Given TID THANG Gabapentin 200 mg 11/17/24 22:00 11/18/24 09:12 Gabapentin 100 Mg Capsule PO Not Given BID THANG Glucagon 1 mg 11/17/24 20:59 Glucagon 1 Mg/Ml Syringe IM X1 PRN Hypoglycemia Protocol Guaifenesin 10 ml 11/17/24 20:59 Guaifenesin 10 Ml Udc (200mg/10ml) PO Q4H PRN PRN CONGESTION Hydralazine HCl 50 mg 11/17/24 20:59 Hydralazine 50 Mg Tablet PO TID PRN PRN HTN Protocol Ciprofloxacin 400 mg in 200 mls @ 200 mls/hr 11/18/24 10:00 11/18/24 10:15 Cipro IV Infused Q12 THANG Infusion Metronidazole 500 mg in 100 mls @ 100 mls/hr 11/18/24 06:00 11/18/24 14:21 Flagyl IV 100 mls/hr Q8 THANG Administration Dextrose 250 mls @ 0 mls/hr 11/17/24 20:59 Dextrose 10%-Water IV .Q0M PRN HYPOGLYCEMIA Protocol As Directed Sodium Chloride 250 mls @ 15 mls/hr 11/17/24 21:00 IV .[id number] PRN Saline Flush Insulin Glargine 25 unit 11/17/24 22:00 11/17/24 22:37 Insulin Glargine-Yfgn 100 Unit/Ml Pen SC Not Given QHS THANG Insulin Human Lispro 0 unit 11/18/24 00:00 11/18/24 11:48 Insulin Lispro 100 Unit/Ml Insuln.Pen SC Not Given Q6 THANG Protocol Ketorolac Tromethamine 15 mg 11/17/24 20:59 11/17/24 22:03 Ketorolac 15 Mg/Ml Vial IV 11/22/24 20:59 15 mg Q6H PRN PRN Administration Pain Score 1-10 Ondansetron HCl 4 mg 11/17/24 20:59 Ondansetron 4 Mg/2 Ml Vial IV Q8H PRN PRN NAUSEA/VOMITING Sodium Chloride 10 - 40 ml 11/17/24 21:00 0.9% Saline Lock 10 Ml Syringe IV UD PRN SALINE FLUSH PFSH Medical History Parkinsons disease Diabetes Hypertension Home Medications ?Medication ?Instructions ?Recorded ?Last Taken ?Type acetaminophen 325 mg tablet (Pain 650 mg PO Q4H PRN pain 11/17/24 Unknown History Relief (acetaminophen)) acetaminophen 650 mg rectal 650 mg [place] Q4H PRN pain 11/17/24 Unknown History suppository amlodipine 5 mg tablet 5 mg PO DAILY 11/17/24 Unknown History aspirin 81 mg tablet,delayed 81 mg PO DAILY 11/17/24 Unknown History release (Adult Low Dose Aspirin) atorvastatin 20 mg tablet 20 mg PO QHS 11/17/24 Unknown History benzonatate 100 mg capsule 100 mg PO TID PRN cough 11/17/24 Unknown History bisacodyl 10 mg rectal suppository 10 mg [place] DAILY PRN constipation 11/17/24 Unknown History carbidopa 25 mg-levodopa 250 mg 1 tab PO TID 11/17/24 Unknown History tablet cholecalciferol (vitamin D3) 125 125 mcg PO FR 11/17/24 Unknown History mcg (5,000 unit) capsule furosemide 20 mg tablet (Lasix) 20 mg PO DAILY 11/17/24 Unknown History gabapentin 100 mg tablet 200 mg PO BID 11/17/24 Unknown History guaifenesin 100 mg/5 mL oral 200 mg PO Q4H PRN cough 11/17/24 Unknown History liquid (Adult Tussin Chest Congestion) hydralazine 50 mg tablet 50 mg PO TID PRN HTN 11/17/24 Unknown History insulin glargine 100 unit/mL (3 52 unit subcut QHS 11/17/24 Unknown History mL) subcutaneous pen (Lantus Solostar U-100 Insulin) insulin regular human 100 unit/mL 10 unit subcut BID 11/17/24 Unknown History injection solution (Humulin R Regular U-100 Insulin) magnesium hydroxide 400 mg/5 mL 2,400 mg PO DAILY PRN constipation 11/17/24 Unknown History oral suspension (Milk of Magnesia) metformin 500 mg tablet 500 mg PO DAILY 11/17/24 Unknown History sennosides 8.6 mg-docusate sodium 1 tab-cap PO DAILY 11/17/24 Unknown History 50 mg tablet (2-in-1 Laxative) simethicone 80 mg chewable tablet 80 mg PO BID 11/17/24 Unknown History sodium phosphates 19 gram-7 118 ml [place] DAILY PRN constipation 11/17/24 Unknown History gram/118 mL enema (Enema) therapeutic multivitamin 1 tab PO DAILY 11/17/24 Unknown History tramadol 50 mg tablet 50 mg PO Q6H PRN pain 11/17/24 Unknown History Allergy/AdvReac Type Severity Reaction Status Date / Time adhesive tape Allergy rash Verified 11/17/24 14:09 amoxicillin Allergy hives Verified 11/17/24 14:09 cephalexin Allergy Hives Verified 11/17/24 14:09 silicone Allergy Rash Verified 11/17/24 14:09 Family History Other CAD (coronary artery disease) Social History Smoking Status: Never smoker Review of Systems (Anesthesia) ROS Narrative System reviewed and no additional complaints, except as documented.
[2024-11-18] MEDS: Lactated Ringers 1,000 ML 15 ML IV (15:52)
--- NOTE | 2024-11-18 16:28 | PCM.PN.BLA ---
Progress Note And patient received 3 subset enemas. Physical Exam Const alert, oriented x3 and no apparent distress HEENT normocephalic and head/scalp atraumatic Resp normal respiratory effort Cardio regular rate GI soft to palpation and non-tender GI Narrative: Mild distention Palpation: Negative for guarding Extremity no clubbing, cyanosis or edema Neuro CN's II-XII intact bilaterally Psych mental status grossly normal Assessment & Plan Assessment/Plan (1) Colon distention: (2) Abdominal pain: (3) Ileus: (4) Proctocolitis: PLAN: A dilated colon on imaging in an elderly woman can indicate several conditions, including?large bowel obstruction ( which she does not have at this time), pseudo-obstruction , or toxic megacolon.?Other possibilities include?adynamic ileus,?volvus,?or other causes of bowel distension.?Diagnosis and treatment depend on the underlying cause.? Also different diagnosis is ulcerative proctitis, stercoral ulcer syndrome, diverticulitis, fecal impaction, Salo syndrome. She should undergo flexible sigmoidoscopy with biopsies. versus colonoscopy with rectal tube placement and possible stent placement. Visit Charges Inpatient E&M: 69167 [facility] Hosp L3
--- NOTE | 2024-11-18 16:54 | PCM.POST.ANE ---
Anesthesia: Postop Eval I Current Vital Signs Temperature: 98.4 F Pulse Rate: 84 Blood Pressure: 121/44 Respiratory Rate: 18 Pulse Ox: 95 Assessment Airway patent: Yes Spontaneous unlabored respirations: Yes nausea: No Vomiting: No Anesthesia Complication: No Fluid Hydration Crystalloid volume administer (ml): 100 Total IV fluid infused: 100 Progress Note Anesthesia document: Postop Eval 1 completed: Yes
--- NOTE | 2024-11-18 16:55 | OP.COLON_ITS ---
Patient Name: Trudy Fitch Procedure Date: 11/18/2024 4:15 PM Date of : 1940 Age: 84 Procedure: Colonoscopy Indications: Generalized abdominal pain, Abnormal CT of the GI tract Providers: Guevara Dunn DO Medicines: Monitored Anesthesia Care Patient Profile: This is an 84 year old female. Refer to note in patient chart for documentation of history and physical. Last Colonoscopy: date unknown. Unable to locate last colonoscopy report. Complications: No immediate complications. Procedure: Pre-Anesthesia Assessment: - Prior to the procedure, a History and Physical was performed, and patient medications and allergies were reviewed. The patient is competent. The risks and benefits of the procedure and the sedation options and risks were discussed with the patient. All questions were answered and informed consent was obtained. Patient identification and proposed procedure were verified by the physician in the pre-procedure area. Mental Status Examination: alert and oriented. Airway Examination: normal oropharyngeal airway and neck mobility. Respiratory Examination: clear to auscultation. CV Examination: normal. Prophylactic Antibiotics: The patient does not require prophylactic antibiotics. Prior Anticoagulants: The patient has taken no anticoagulant or antiplatelet agents. ASA Grade Assessment: II - A patient with mild systemic disease. After reviewing the risks and benefits, the patient was deemed in satisfactory condition to undergo the procedure. The anesthesia plan was to use monitored anesthesia care (MAC). Immediately prior to administration of medications, the patient was re-assessed for adequacy to receive sedatives. The heart rate, respiratory rate, oxygen saturations, blood pressure, adequacy of pulmonary ventilation, and response to care were monitored throughout the procedure. The physical status of the patient was re-assessed after the procedure. After I obtained informed consent, the scope was passed under direct vision. Throughout the procedure, the patient's blood pressure, pulse, and oxygen saturations were monitored continuously. The was introduced through the anus and advanced to the cecum, identified by appendiceal orifice and ileocecal valve. After I obtained informed consent, the scope was passed under direct vision. Throughout the procedure, the patient's blood pressure, pulse, and oxygen saturations were monitored continuously.The colonoscopy was performed without difficulty. The patient tolerated the procedure well. The quality of the bowel preparation was 100 percent obscured. The ileocecal valve was photographed. Scope In: 4:37:56 PM Scope Withdrawal Time 0 hours 2 minutes 21 seconds Scope Out: 4:48:54 PM Total Procedure Duration Time 0 hours 10 minutes 58 seconds Findings: The perianal and digital rectal examinations were normal. Stool was found in the entire colon, precluding visualization. Lavage of the area was performed using a large amount, resulting in incomplete clearance with continued poor visualization. The lumen of the colon (entire examined portion) was significantly dilated. Colonic air along with some stool was removed from the patient's right colon and left colon along with from the rectum. Multiple small-mouthed diverticula were found in the recto-sigmoid colon and sigmoid colon. Impression: - Stool in the entire examined colon. - Dilated in the entire examined colon. - Diverticulosis in the recto-sigmoid colon and in the sigmoid colon. - No specimens collected. Recommendation: - Return patient [facility]. - GoLytely bowel prep to clean out and decompress the colon - No recommendation at this time regarding repeat colonoscopy. - Continue present medications. Procedure Code(s): --- Professional --- 97183, Colonoscopy, flexible; diagnostic, including collection of specimen(s) by brushing or washing, when performed (separate procedure) CPT copyright 2021 [employer]. All rights reserved. The codes documented in this report are preliminary and upon collections manager review may be revised to meet current compliance requirements. Guevara Dunn DO 11/18/2024 4:55:12 PM This report has been signed electronically. Number of Addenda: 0 Note Initiated On: 11/18/2024 4:15 PM
--- NOTE | 2024-11-18 16:56 | OP.CCLET_ITS ---
11/18/2024 Lorena Rogers Md Re : Colonoscopy procedure for Trudy Fitch Dear Dr. Rogers This procedure was performed on Monday, November 18, 2024. My impressions and recommendations are as follows: Impressions : - Stool in the entire examined colon. - Dilated in the entire examined colon. - Diverticulosis in the recto-sigmoid colon and in the sigmoid colon. - No specimens collected. Recommendations : - Return patient to [facility] for [facility] care. - GoLytely bowel prep to clean out and decompress the colon - No recommendation at this time regarding repeat colonoscopy. - Continue present medications. My findings are described in the full procedure note, which is enclosed. If I can be of further assistance, please feel free to contact me at . Sincerely, Guevara Friend, 11/18/2024 4:55:12 PM This report has been signed electronically.
--- NOTE | 2024-11-18 17:00 | POSTOPAN2_ITS ---
Anesthesia Postop Eval I Sum Postop Eval Completion status Anesthesia document: Postop Eval 1 completed: Yes Anesthesia Postop Eval I Summary Anesthesia Postop Eval I Summary: Anesthesia Postop Eval I: Assessment Summary Airway patent Yes 11/18/24 16:54 MERCHANDISE PRESENTATION [email or web address] Spontaneous unlabored Yes 11/18/24 16:54 MERCHANDISE PRESENTATION [email or web address] respirations Mental status nausea No 11/18/24 16:54 MERCHANDISE PRESENTATION [email or web address].[email or web address] Vomiting No 11/18/24 16:54 MERCHANDISE PRESENTATION [email or web address] Anesthesia Postop Eval I: Fluid Summary Crystalloid volume administer 100 11/18/24 16:54 MERCHANDISE PRESENTATION [email or web address].CSIR (ml) Colloids volume administered ( ml) Blood Product volume administered (ml) Total IV fluid infused 100 11/18/24 16:54 MERCHANDISE PRESENTATION [email or web address].CSIR Anesthesia Postop Eval I: Summary Notes Anesthesia Complication No 11/18/24 16:54 MERCHANDISE PRESENTATION [email or web address] Anesthesia Complication Comment: Post-operative progress note Anesthesia: Postop Eval II Evaluation Mental status: Awake Pain Level: 0 nausea: No Vomiting: No Complications Anesthesia Complication: No
--- NOTE | 2024-11-18 17:00 | PCM.POSTANE2 ---
Anesthesia Postop Eval I Sum Postop Eval Completion status Anesthesia document: Postop Eval 1 completed: Yes Anesthesia Postop Eval I Summary Anesthesia Postop Eval I Summary: Anesthesia Postop Eval I: Assessment Summary Airway patent Yes 11/18/24 16:54 COMMUNICATION COORDINATOR.[email or web address] Spontaneous unlabored Yes 11/18/24 16:54 COMMUNICATION COORDINATOR.CSIR respirations Mental status nausea No 11/18/24 16:54 COMMUNICATION COORDINATOR.CSIR Vomiting No 11/18/24 16:54 COMMUNICATION COORDINATOR.CSIR Anesthesia Postop Eval I: Fluid Summary Crystalloid volume administer 100 11/18/24 16:54 COMMUNICATION COORDINATOR.CSIR (ml) Colloids volume administered ( ml) Blood Product volume administered (ml) Total IV fluid infused 100 11/18/24 16:54 COMMUNICATION COORDINATOR.CSIR Anesthesia Postop Eval I: Summary Notes Anesthesia Complication No 11/18/24 16:54 COMMUNICATION COORDINATOR.CSIR Anesthesia Complication Comment: Post-operative progress note Anesthesia: Postop Eval II Evaluation Mental status: Awake Pain Level: 0 nausea: No Vomiting: No Complications Anesthesia Complication: No
--- NOTE | 2024-11-18 17:51 | NURSING ---
pt has returned from procedure--she has ordered clear liquid diet
--- NOTE | 2024-11-18 17:53 | NURSING ---
zithromax 1800 dose and prep are not on unit for pt administration
[2024-11-18] MEDS: Insulin Lispro 100 UNIT/ML INSULN.PEN SC (19:00)
[2024-11-18] MEDS: 0.9% Saline Lock 10 ML Syringe IV (19:01)
[2024-11-18] MEDS: Azithromycin 500 MG in 0.9% Normal Saline (250mL Bag) 250 ML 255 MG IV (19:01)
[2024-11-18 19:07] LABS: Bedside Glucose 199 mg/dL (74-106)
[2024-11-18] MEDS: Electrolyte Solution/Peg's 4000 ML PO (20:20)
[2024-11-18] MEDS: Ketorolac 15 MG/ML Vial IV (21:30)
[2024-11-18] MEDS: Gabapentin 100 MG Capsule 200 MG PO (23:00)
[2024-11-19 00:57] LABS: Bedside Glucose 105 mg/dL (74-106)
[2024-11-19 05:21] VITALS: BP 125/58; PULSE 63; RESP 18; TEMP 36.9; O2SAT 94
[2024-11-19] MEDS: Carbidopa/Levodopa 25/250 Tablet PO ×3 (05:27→23:03)
[2024-11-19] MEDS: metroNIDAZOLE 500 MG/100 ML BAG 100 MG IV ×3 (05:27→23:02)
[2024-11-19 07:03] LABS: Absolute Lymphocyte Count 2.35 X10^3/uL (0.83-4.51); Absolute Neutrophil Count 2.5 X10^3/uL (2.0-7.7); Basophil# 0.05 X10^3/uL; Basophil% 0.9 % (0-1); Eosinophil# 0.07 X10^3/uL; Eosinophils% 1.2 % (0-5); Hematocrit 33.3 % (37-47); Lymphocyte # 2.35 X10^3/ul (0.83-4.51); Lymphocyte % 40.2 % (19-41); Mean Corpuscular Hgb 32.1 pg (27.0-32.0); Mean Corpuscular Volume 97.1 fL (81-99); Mean Platelet Vol. 10.6 fl (6.2-12.0); Monocyte# 0.84 X10^3/uL; Monocyte% 14.4 % (0-10); NRBC Flagged by Analyzer 0 % (0-5); Neutrophil % 42.8 % (47-70); Platelet Count 198 K/mm3 (150-450); RBC Distribution Width CV 13.5 % (11.6-14.6); RBC Distribution Width SD 47.8 fl (35.1-43.9); Red Blood Count 3.43 M/mm3 (4.2-5.4); White Blood Count 5.8 K/mm3 (4.4-11.0)
[2024-11-19 07:14] LABS: Bedside Glucose 85 mg/dL (74-106)
--- NOTE | 2024-11-19 07:14 | PN.HOSP_ITS ---
Reason for Visit Reason for Visit: Diagnoses Noninfective gastroenteritis and colitis, unspecified (11/17/24) Ileus, unspecified (11/17/24) Other specified diseases of intestine (11/17/24) Unspecified abdominal pain (11/17/24) Subjective Subjective Feeling well. Having bowel movements. Objective Data Objective Data Vital Signs: Vital Signs Temp Pulse Resp BP Pulse Ox O2 Del Method 36.9 C 63 18 125/58 H 94 Room Air 11/19/24 05:21 11/19/24 05:21 11/19/24 05:21 11/19/24 05:21 11/19/24 05:21 11/19/24 05:21 Oxygen Delivery Method Room Air Weight: 105 kg Body Mass Index (BMI) 43.7 Intake & Output: Intake and Output for Last 24 Hours 11/17/24 11/18/24 11/19/24 23:59 23:59 23:59 Intake Total 300 / 300 2005 / 2005 1999 / 1999 Output Total 400 / 400 700 / 700 Balance 300 / 300 1606 / 1606 1300 / 1300 Lab / Micro Data 11/19/24 05:32 11/19/24 05:32 Labs: Laboratory Results - last 24 hr 11/18/24 05:28: POC Glucose 84 11/18/24 09:56: APTT 27.7, Hemoglobin A1c 7.2 H 11/18/24 11:42: POC Glucose 131 H 11/18/24 18:46: POC Glucose 199 H 11/18/24 22:58: POC Glucose 105 11/19/24 05:26: POC Glucose 85 11/19/24 05:32: WBC 5.8, RBC 3.43 L, Hgb 11.0 L, Hct 33.3 L, MCV 97.1, MCH 32.1 H, MCHC 33.0, RDW Std Deviation 47.8 H, RDW Coeff of Anthony 13.5, Plt Count 198, MPV 10.6, Immature Gran % (Auto) 0.500, Neut % (Auto) 42.8 L, Lymph % (Auto) 40.2, [place] % (Auto) 14.4 H, Eos % (Auto) 1.2, Baso % (Auto) 0.9, Absolute Neuts (auto) 2.5, Absolute Lymphs (auto) 2.35, Nucleated RBC % 0 Physical Exam Const alert and no apparent distress HEENT head/scalp atraumatic and moist oral mucous membranes Resp normal respiratory effort, no retractions, no use of accessory muscles and clear to auscultation bilaterally Cardio regular rate, regular rhythm, S1 normal heart sound and S2 normal heart sound GI normal to inspection, nondistended, normoactive bowel sounds and soft to palpation GI Narrative: distended, softer. normal bowel sounds. Extremity normal to inspection Neuro Sensorium / Orientation: awake and alert Assessment & Plan Assessment/Plan (1) Colon distention: PLAN: 11/17: Discussed with Dr. Sands, who does not feel patient has a volvulus and recommended GI consultation so that patient may have more readily available possible sigmoidoscopy neck to be performed by gastroenterology rather than general surgery as would not be performed until later in the day. I discussed with Dr. Dunn of gastroenterology who reviewed the images recommend NG tube and soapsuds enema and did have bowel movement with a soapsuds enema then to proceed with a rectal tube. I discussed with the [facility] charge nurse who states that their experience of putting rectal tubes is rather limited so I spoke with the emergency room physician to see if they can do that before the patient can be brought up to the hospital floor. I then discussed with Dr. Solis in the ED about the recommendations. NGT was attempted twice, but coiled up. No further NG attempts. Soap suds enema given in the ED. 11/18: some BM with enemas, but still very distended, though softer. Concern for possible colitis and patient continue with ciprofloxacin and metronidazole for now. Additionally avoid narcotics. Pain control with acetaminophen and ketorolac for now. Consult both general surgery and gastroenterology. Colonoscopy on 11/18: stool in entire colon. lavage performed with some removal of stool. Dilated lumen of the colon. CLD. Finishing bowel preps, not for a repeat colonoscopy, but to clear out the remainder of the bowel. PLAN: Plan Chronic conditions * Obesity class III: Complicates care and recovery * Diabetes mellitus type 2, insulin-dependent. Cut glargine in half. Hold prandial insulin. Sliding scale insulin. * Parkinson's disease: Continue Sinemet VTE prophylaxis with SCDs. Holding off on chemical prophylaxis given potential for intervention. CODE STATUS: Addressed with the patient. Patient wishes to be full code. Charges/Coding Visit Charges Inpatient E&M: 29629 Subs Hosp L2
--- NOTE | 2024-11-19 07:46 | PCM.PN.SRG ---
Subjective Subjective Patient evaluated resting comfortably in bed. She denies any nausea, vomiting or abdominal pain. She was given golytely overnight to assist with bowel function. Thus far, she has not had any bowel movements. She notes very little amount of flatus. Objective Data Objective Data Vital Signs: Vital Signs Temp Pulse Resp BP Pulse Ox O2 Del Method 98.4 F 63 18 125/58 H 94 Room Air 11/19/24 05:21 11/19/24 05:21 11/19/24 05:21 11/19/24 05:21 11/19/24 05:21 11/19/24 05:21 Oxygen Delivery Method Room Air Weight: 231 lb 7.766 oz Body Mass Index (BMI) 43.7 Intake & Output: Intake and Output for Last 24 Hours 11/17/24 11/18/24 11/19/24 23:59 23:59 23:59 Intake Total 300 / 300 2005 Output Total 400 / 400 700 / 700 Balance 300 / 300 1606 / 1606 1300 / 1300 Lab / Micro Data 11/19/24 05:32 11/19/24 05:32 Labs: Laboratory Results - last 24 hr 11/18/24 09:56: APTT 27.7, Hemoglobin A1c 7.2 H 11/18/24 11:42: POC Glucose 131 H 11/18/24 18:46: POC Glucose 199 H 11/18/24 22:58: POC Glucose 105 11/19/24 05:26: POC Glucose 85 11/19/24 05:32: WBC 5.8, RBC 3.43 L, Hgb 11.0 L, Hct 33.3 L, MCV 97.1, MCH 32.1 H, MCHC 33.0, RDW Std Deviation 47.8 H, RDW Coeff of Anthony 13.5, Plt Count 198, MPV 10.6, Immature Gran % (Auto) 0.500, Neut % (Auto) 42.8 L, Lymph % (Auto) 40.2, [place] % (Auto) 14.4 H, Eos % (Auto) 1.2, Baso % (Auto) 0.9, Absolute Neuts (auto) 2.5, Absolute Lymphs (auto) 2.35, Nucleated RBC % 0 Physical Exam GI GI Narrative: Abdomen- obese, soft, slightly distended. Positive bowel sounds. Non-tender. Assessment & Plan Assessment/Plan (1) Colon distention: (2) Ileus: PLAN: Plan I am following this patient in conjunction with Dr. Sands. She will independently evaluate this patient. Labs reviewed Continue with bowel prep as tolerated Bowel sounds present Await GI function prior to starting diet No surgical intervention planned at this time We will continue to monitor this patient Charges/Coding Visit Charges Inpatient E&M: 15313 Subs Hosp L2
[2024-11-19 07:49] LABS: Anion Gap 11 (5-15); BUN 8 mg/dL (4-19); BUN/Creat Ratio 17.1 RATIO (10-20); Calcium,Total 8.7 mg/dL (7.6-11.0); Chloride 102 mmol/L (98-108); Creatinine, Serum 0.47 mg/dL (0.70-1.20); EST Glomerular Filtration Rate 94 (>60); Estimated Creatinine Clearance 58.41 ml/min (50-250); Glucose 82 mg/dL (70-99); Potassium 3.4 mmol/L (3.3-5.1); Sodium Level 139 mmol/L (133-145)
[2024-11-19 08:13] VITALS: BP 133/53; PULSE 72; RESP 16; TEMP 36.6; O2SAT 94
[2024-11-19] MEDS: Aspirin E.C. 81 MG Tablet PO (08:24)
[2024-11-19] MEDS: Azithromycin 500 MG in 0.9% Normal Saline (250mL Bag) 250 ML 255 MG IV (09:48)
--- NOTE | 2024-11-19 10:08 | CASEMGMT ---
Discharge Planning Updates sent to [facility] with request to submit for precert. Milena Muñoz DC Planning Asst.
[2024-11-19] MEDS: amLODIPine 5 MG Tablet PO (10:52)
[2024-11-19] MEDS: Gabapentin 100 MG Capsule 200 MG PO ×2 (10:52→23:01)
[2024-11-19] MEDS: Ciprofloxacin 400 MG/200 ML BAG 200 MG IV (10:53)
[2024-11-19] MEDS: Insulin Lispro 100 UNIT/ML INSULN.PEN SC ×3 (11:10→23:02)
[2024-11-19 11:25] VITALS: BP 124/51; PULSE 66; RESP 16; TEMP 36.6; O2SAT 96
[2024-11-19 13:54] LABS: Bedside Glucose 189 mg/dL (74-106)
--- NOTE | 2024-11-19 15:59 | CASEMGMT ---
Social Work SW spoke with medical records at [facility] as pt stated they have a copy of her HCPOA. [facility] does not have a copy of HCPOA on file. TUAN Martinez
--- NOTE | 2024-11-19 16:00 | CASEMGMT ---
Social Work- SW met with pt to update that [facility] did not have HCPOA paperwork on file, only a Living Will document. SW inquired if pt would like to complete HCPOA to have on file. Pt declines at this time. SW provided education that pt can complete the document at anytime by asking for SW while in the hospital or scheduling an appointment with SW once discharged. Pt reports understanding. Pt reports no other needs at this time. TUAN Fish
[2024-11-19 16:40] LABS: Bedside Glucose 201 mg/dL (74-106)
[2024-11-19 22:45] LABS: Bedside Glucose 162 mg/dL (74-106)
[2024-11-19 22:49] VITALS: BP 145/57; PULSE 79; RESP 16; TEMP 36.6; O2SAT 97
[2024-11-19] MEDS: Ketorolac 15 MG/ML Vial IV (23:00)
[2024-11-19] MEDS: 0.9% Saline Lock 10 ML Syringe IV (23:01)
[2024-11-19] MEDS: Insulin Glargine-YFGN 100 UNIT/ML Pen 25 UNIT SC (23:02)
[2024-11-20] MEDS: Ciprofloxacin 400 MG/200 ML BAG 200 MG IV ×2 (00:29→09:10)
[2024-11-20 04:30] VITALS: BP 117/52; PULSE 70; RESP 16; TEMP 37.4; O2SAT 97
[2024-11-20] MEDS: 0.9% Saline Lock 10 ML Syringe IV (05:16)
[2024-11-20] MEDS: metroNIDAZOLE 500 MG/100 ML BAG 100 MG IV (05:16)
[2024-11-20] MEDS: Carbidopa/Levodopa 25/250 Tablet PO (06:57)
--- NOTE | 2024-11-20 07:07 | PN.HOSP_ITS ---
Reason for Visit Reason for Visit: Diagnoses Noninfective gastroenteritis and colitis, unspecified (11/17/24) Ileus, unspecified (11/17/24) Other specified diseases of intestine (11/17/24) Unspecified abdominal pain (11/17/24) Subjective Subjective Feeling better. Tolerating diet. Having bowel movements. Objective Data Objective Data Vital Signs: Vital Signs Temp Pulse Resp BP Pulse Ox O2 Del Method 37.4 C H 70 16 117/52 L 97 Room Air 11/20/24 04:30 11/20/24 04:30 11/20/24 04:30 11/20/24 04:30 11/20/24 04:30 11/20/24 04:30 Oxygen Delivery Method Room Air Weight: 105 kg Body Mass Index (BMI) 43.7 Intake & Output: Intake and Output for Last 24 Hours 11/18/24 11/19/24 11/20/24 23:59 23:59 23:59 Intake Total 2005 2555 / 2555 400 / 400 Output Total 400 / 400 1400 / 1400 Balance 1606 / 1606 1155 / 1155 400 / 400 Lab / Micro Data 11/19/24 05:32 11/19/24 05:32 Labs: Laboratory Results - last 24 hr 11/19/24 05:26: POC Glucose 85 11/19/24 05:32: Sodium 139, Potassium 3.4, Chloride 102, Carbon Dioxide 26.0, Anion Gap 11, BUN 8, Creatinine 0.47 L, Estim Creat Clear Calc 58.41, Est GFR (MDRD) Non-Af 94, BUN/Creatinine Ratio 17.1, Glucose 82, Calcium 8.7 11/19/24 11:08: POC Glucose 189 H 11/19/24 16:16: POC Glucose 201 H 11/19/24 22:15: POC Glucose 162 H Physical Exam Const alert and no apparent distress Constitutional Narrative: Up in chair. Eating breakfast. Nontoxic. HEENT head/scalp atraumatic and moist oral mucous membranes Cardio regular rate, regular rhythm, S1 normal heart sound and S2 normal heart sound GI normal to inspection, nondistended, normoactive bowel sounds, soft to palpation and non-tender GI Narrative: Distended but not tight. Neuro Sensorium / Orientation: awake and alert Assessment & Plan Assessment/Plan (1) Colon distention: PLAN: colonic ileus 11/17: Discussed with Dr. Sands, who does not feel patient has a volvulus and recommended GI consultation so that patient may have more readily available possible sigmoidoscopy neck to be performed by gastroenterology rather than general surgery as would not be performed until later in the day. I discussed with Dr. Dunn of gastroenterology who reviewed the images recommend NG tube and soapsuds enema and did have bowel movement with a soapsuds enema then to proceed with a rectal tube. I discussed with the [place] [id number] charge nurse who states that their experience of putting rectal tubes is rather limited so I spoke with the emergency room physician to see if they can do that before the patient can be brought up to the hospital floor. I then discussed with Dr. Solis in the ED about the recommendations. NGT was attempted twice, but coiled up. No further NG attempts. Soap suds enema given in the ED. 11/18: some BM with enemas, but still very distended, though softer. 11/20: Overall improved. Tolerating diet. Likely due to a colonic ileus. That was complicated by constipation as well as tramadol which will be held moving forward. Will need to ensure the patient has proper bowel regimen upon discharge Concern for possible colitis and patient continue with ciprofloxacin and metronidazole for now. Additionally avoid narcotics. Pain control with acetaminophen and ketorolac for now. Colonoscopy on 11/18: stool in entire colon. lavage performed with some removal of stool. Dilated lumen of the colon. CLD. Finishing bowel preps, not for a repeat colonoscopy, but to clear out the remainder of the bowel. PLAN: Plan Chronic conditions * Obesity class III: Complicates care and recovery * Diabetes mellitus type 2, insulin-dependent. Cut glargine in half. Hold prandial insulin. Sliding scale insulin. * Parkinson's disease: Continue Sinemet VTE prophylaxis with SCDs. Holding off on chemical prophylaxis given potential for intervention. CODE STATUS: Addressed with the patient. Patient wishes to be full code. Dispo back to [facility] in stable condition.
[2024-11-20 07:12] LABS: Bedside Glucose 125 mg/dL (74-106)
[2024-11-20] MEDS: Aspirin E.C. 81 MG Tablet PO (08:29)
[2024-11-20] MEDS: amLODIPine 5 MG Tablet PO (09:12)
[2024-11-20] MEDS: Gabapentin 100 MG Capsule 200 MG PO (09:12)
[2024-11-20 09:14] VITALS: BP 133/39; PULSE 86; RESP 16; TEMP 37.2; O2SAT 97
--- NOTE | 2024-11-20 09:29 | PCM.TXEXTCAR ---
Diet Diet Order/Speech Therapy: 11/20/24 06:48 Diet: Transitional Routine Orders/Code Status Enema Type: Fleetz Enema Frequency: Daily PRN Code Status: Full Code DC O2, CPAP, BIPAP needs Home O2 Discharge instructions: No Therapies Weight Bearing: Full weight bearing Physical Therapy: Eval and Treat Occupational Therapy: Eval and Treat Problem/Diagnosis (1) Colon distention: Status: Acute Code(s): K63.89 - Other specified diseases of intestine Plan: colonic ileus 11/17: Discussed with Dr. Sands, who does not feel patient has a volvulus and recommended GI consultation so that patient may have more readily available possible sigmoidoscopy neck to be performed by gastroenterology rather than general surgery as would not be performed until later in the day. I discussed with Dr. Dunn of gastroenterology who reviewed the images recommend NG tube and soapsuds enema and did have bowel movement with a soapsuds enema then to proceed with a rectal tube. I discussed with the [facility] 3 charge nurse who states that their experience of putting rectal tubes is rather limited so I spoke with the emergency room physician to see if they can do that before the patient can be brought up to the hospital floor. I then discussed with Dr. Solis in the ED about the recommendations. NGT was attempted twice, but coiled up. No further NG attempts. Soap suds enema given in the ED. 11/18: some BM with enemas, but still very distended, though softer. 11/20: Overall improved. Tolerating diet. Likely due to a colonic ileus. That was complicated by constipation as well as tramadol which will be held moving forward. Will need to ensure the patient has proper bowel regimen upon discharge Concern for possible colitis and patient continue with ciprofloxacin and metronidazole for now. Additionally avoid narcotics. Pain control with acetaminophen and ketorolac for now. Colonoscopy on 11/18: stool in entire colon. lavage performed with some removal of stool. Dilated lumen of the colon. CLD. Finishing bowel preps, not for a repeat colonoscopy, but to clear out the remainder of the bowel. Plan Chronic conditions Obesity class III: Complicates care and recovery Diabetes mellitus type 2, insulin-dependent. Cut glargine in half. Hold prandial insulin. Sliding scale insulin. Parkinson's disease: Continue Sinemet VTE prophylaxis with SCDs. Holding off on chemical prophylaxis given potential for intervention. CODE STATUS: Addressed with the patient. Patient wishes to be full code. Dispo back to [facility] in stable condition. Allergies/Procedures Done in Hospital Allergies adhesive tape Allergy (Verified 11/17/24 14:09) rash amoxicillin Allergy (Verified 11/17/24 14:09) hives cephalexin Allergy (Verified 11/17/24 14:09) Hives silicone Allergy (Verified 11/17/24 14:09) Rash Procedures: None Type of Care/Length of Stay Estimated LOS: Convalescent Care Less Than 30 days Type of Care Needed: Skilled Rehab Potential: Good Prognosis: Good Additional Orders/Day of Discharge Day of Discharge: 11/20/24 Dietary and Speech Recommendations Dietitian Recommendations/Changes: Recommend advance diet as tolerated to Transitional with goal of 1600 calorie consistent carbohydrate/cardiac diet. ONS if needed once diet advanced. Discharge Plan Admission Admit Date/Time: 11/17/24 18:39 Primary Reason for Your Visit: Colonic ileus. Attending Provider: Anant Foreman Primary Care Provider: Lorena Rogers Consulting Providers: Norma Sands Instructions Additional Instructions / Restrictions: You had a very distended colon called an ileus. This is complicated by constipation as well as weight pain medications, tramadol. I am going to hold her tramadol moving forward. Also strongly advised her regular bowel regimen with as needed enemas. If your abdomen gets as painful as it did before, please seek medical attention. Discharge Orders/Prescriptions Prescriptions: New insulin glargine-yfgn 100 unit/mL (3 mL) Insulin Pen 25 unit subcut QHS Qty: 0 0RF ciprofloxacin HCl 500 mg tablet 500 mg PO BID Qty: 8 0RF metronidazole 500 mg tablet 500 mg PO Q8H Qty: 12 0RF ondansetron 8 mg tablet,disintegrating 8 mg PO Q8H PRN (Reason: nausea and vomiting) 5 Days Qty: 15 0RF docusate sodium [Colace] 100 mg capsule 200 mg PO BID Qty: 20 0RF Continued amlodipine 5 mg tablet 5 mg PO DAILY aspirin [Adult Low Dose Aspirin] 81 mg tablet,delayed release (DR/EC) 81 mg PO DAILY atorvastatin 20 mg tablet 20 mg PO QHS carbidopa-levodopa 25-250 mg tablet 1 tab PO TID therapeutic multivitamin Tablet 1 tab PO DAILY simethicone 80 mg tablet,chewable 80 mg PO BID Rx Instructions: after meals gabapentin 100 mg tablet 200 mg PO BID furosemide [Lasix] 20 mg tablet 20 mg PO DAILY acetaminophen [Pain Relief (acetaminophen)] 325 mg tablet 650 mg PO Q4H PRN (Reason: pain) magnesium hydroxide [Milk of Magnesia] 400 mg/5 mL suspension 2,400 mg PO DAILY PRN (Reason: constipation) cholecalciferol (vitamin D3) 125 mcg (5,000 unit) capsule 125 mcg PO FR acetaminophen 650 mg suppository 650 mg IL Q4H PRN (Reason: pain) bisacodyl 10 mg suppository 10 mg IL DAILY PRN (Reason: constipation) Enema 19-7 gram/118 mL enema 118 ml IL DAILY PRN (Reason: constipation) guaifenesin [Adult Tussin Chest Congestion] 100 mg/5 mL liquid 200 mg PO Q4H PRN (Reason: cough) benzonatate 100 mg capsule 100 mg PO TID PRN (Reason: cough) hydralazine 50 mg tablet 50 mg PO TID PRN (Reason: HTN) Discontinued Humulin R Regular U-100 Insuln 100 unit/mL solution 10 unit subcut BID metformin 500 mg tablet 500 mg PO DAILY sennosides-docusate sodium [2-in-1 Laxative] 8.6-50 mg tablet 1 tab-cap PO DAILY tramadol 50 mg tablet 50 mg PO Q6H PRN (Reason: pain) insulin glargine [Lantus Solostar U-100 Insulin] 100 unit/mL (3 mL) insulin pen 52 unit SUBCUT QHS Referrals / Follow Up: Lorena Rogers MD [Primary Care Provider] - Within 2 Weeks Disposition Disposition (needs filled in before D/C Order can be placed): [facility]
--- NOTE | 2024-11-20 09:39 | PCM.DC.SUM ---
Providers Date of Admission: 11/17/24 Primary Care Physician: Dr. Lorena Rogers MD Consultations 11/17/24 20:59 Consult: Gastroenterology Routine Consulting Provider: [facility] Reason for Consult: colonic distention EMERGENT Consult: No Notified: Yes Date Notified: 11/17/24 Time Notified: 18:56 Method of Notification: Verbal Consult: General Surgery Routine Consulting Provider: Norma Sands Reason for Consult: colonic distention EMERGENT Consult: No Notified: Yes Date Notified: 11/17/24 Time Notified: 18:56 Method of Notification: Verbal Reason For Visit: COLONIC DISTENTION Diagnosis Discharge Diagnosis (1) Colon distention: Status: Acute Code(s): K63.89 - Other specified diseases of intestine Plan: colonic ileus 11/17: Discussed with Dr. Sands, who does not feel patient has a volvulus and recommended GI consultation so that patient may have more readily available possible sigmoidoscopy neck to be performed by gastroenterology rather than general surgery as would not be performed until later in the day. I discussed with Dr. Dunn of gastroenterology who reviewed the images recommend NG tube and soapsuds enema and did have bowel movement with a soapsuds enema then to proceed with a rectal tube. I discussed with the [facility] 3 charge nurse who states that their experience of putting rectal tubes is rather limited so I spoke with the emergency room physician to see if they can do that before the patient can be brought up to the hospital floor. I then discussed with Dr. Solis in the ED about the recommendations. NGT was attempted twice, but coiled up. No further NG attempts. Soap suds enema given in the ED. 11/18: some BM with enemas, but still very distended, though softer. 11/20: Overall improved. Tolerating diet. Likely due to a colonic ileus. That was complicated by constipation as well as tramadol which will be held moving forward. Will need to ensure the patient has proper bowel regimen upon discharge Concern for possible colitis and patient continue with ciprofloxacin and metronidazole for now. Additionally avoid narcotics. Pain control with acetaminophen and ketorolac for now. Colonoscopy on 11/18: stool in entire colon. lavage performed with some removal of stool. Dilated lumen of the colon. CLD. Finishing bowel preps, not for a repeat colonoscopy, but to clear out the remainder of the bowel. Plan Chronic conditions Obesity class III: Complicates care and recovery Diabetes mellitus type 2, insulin-dependent. Cut glargine in half. Hold prandial insulin. Sliding scale insulin. Parkinson's disease: Continue Sinemet VTE prophylaxis with SCDs. Holding off on chemical prophylaxis given potential for intervention. CODE STATUS: Addressed with the patient. Patient wishes to be full code. Dispo back to [facility] in stable condition. Medications at Discharge Home Medications acetaminophen 325 mg tablet (Pain Relief (acetaminophen)) 650 mg PO Q4H PRN pain 11/17/24 acetaminophen 650 mg rectal suppository 650 mg UT Q4H PRN pain 11/17/24 amlodipine 5 mg tablet 5 mg PO DAILY 11/17/24 aspirin 81 mg tablet,delayed release (Adult Low Dose Aspirin) 81 mg PO DAILY 11/17/24 atorvastatin 20 mg tablet 20 mg PO QHS 11/17/24 benzonatate 100 mg capsule 100 mg PO TID PRN cough 11/17/24 bisacodyl 10 mg rectal suppository 10 mg UT DAILY PRN constipation 11/17/24 carbidopa 25 mg-levodopa 250 mg tablet 1 tab PO TID 11/17/24 cholecalciferol (vitamin D3) 125 mcg (5,000 unit) capsule 125 mcg PO FR 11/17/24 furosemide 20 mg tablet (Lasix) 20 mg PO DAILY 11/17/24 gabapentin 100 mg tablet 200 mg PO BID 11/17/24 guaifenesin 100 mg/5 mL oral liquid (Adult Tussin Chest Congestion) 200 mg PO Q4H PRN cough 11/17/24 hydralazine 50 mg tablet 50 mg PO TID PRN HTN 11/17/24 magnesium hydroxide 400 mg/5 mL oral suspension (Milk of Magnesia) 2,400 mg PO DAILY PRN constipation 11/17/24 simethicone 80 mg chewable tablet 80 mg PO BID 11/17/24 sodium phosphates 19 gram-7 gram/118 mL enema (Enema) 118 ml UT DAILY PRN constipation 11/17/24 therapeutic multivitamin 1 tab PO DAILY 11/17/24 ciprofloxacin HCl 500 mg tablet 500 mg PO BID #8 tabs 11/20/24 docusate sodium 100 mg capsule (Colace) 200 mg (2 x 100 mg) PO BID #20 caps 11/20/24 insulin glargine-yfgn 100 unit/mL (3 mL) subcutaneous pen 25 unit (0.25 mL) subcut QHS #0 mL 11/20/24 metronidazole 500 mg tablet 500 mg PO Q8H #12 tabs 11/20/24 ondansetron 8 mg disintegrating tablet 8 mg PO Q8H PRN nausea and vomiting 5 days #15 tabs 11/20/24 Hospital Course Operations None Procedures Colonoscopy Summary of Care Provided Minutes Spent on Discharge: 35 Hospital Course: Patient presents with abdominal pain and distention. Patient had markedly dilated colon. Clinically not of volvulus but more likely consistent with a colonic ileus. Patient did receive enemas and did have a bowel movement and did undergo a colonoscopy that showed stool throughout the colon. Patient continued to have bowel movements afterwards and abdomen is still distended but feeling much better. Patient is eating and doing well. With scans concerning for a colonic ileus likely precipitated by constipation as well as tramadol. Tramadol be discontinued moving forward and would recommend avoiding narcotics as much as possible. Concern the patient may have had some colitis as well whether that that was inciting this ileus or but patient has been on ciprofloxacin and metronidazole while she was here. I will continue upon discharge. Weight / BMI Weight Weight: 105 kg Body Mass Index (BMI) 43.7 ABG / Lab / Microbiology Data 11/19/24 05:32 11/19/24 05:32 Laboratory: Laboratory Results - last 24 hr 11/19/24 11:08: POC Glucose 189 H 11/19/24 16:16: POC Glucose 201 H 11/19/24 22:15: POC Glucose 162 H 11/20/24 06:54: POC Glucose 125 H D/C Instructions Discharge Diet: No restrictions DC O2, CPAP, BIPAP Needs Home O2 Discharge instructions: No Meaningful Use Info Meaningful Use Meaningful Use Diagnoses (Choose all that apply): None applicable Ischemic Stroke Statin Dosing Therapy Reference: STATIN DOSE THERAPY REFERENCE: * Patients > 75 years receive moderate or high dose statin therapy. * Patients 75 years or YOUNGER should receive HIGH intensity statin dose unless contraindicated. You will be required to document reason for non-treatment if statin daily dose does not meet guidelines. HIGH DOSE STATIN THERAPY DAILY Atorvastatin > than or = to 40 mg Rosuvastatin > than or = to 20 mg Amlodipine + Atorvastatin > than or = to 2.5/40 mg Ezetimibe + Simvastatin 10/80 mg Simvastatin 80mg Discharge Plan Admission Admit Date/Time: 11/17/24 18:39 Primary Reason for Your Visit: Colonic ileus. Attending Provider: Anant Foreman Primary Care Provider: Lorena Rogers Consulting Providers: Norma Sands Instructions Additional Instructions / Restrictions: You had a very distended colon called an ileus. This is complicated by constipation as well as weight pain medications, tramadol. I am going to hold her tramadol moving forward. Also strongly advised her regular bowel regimen with as needed enemas. If your abdomen gets as painful as it did before, please seek medical attention. Discharge Orders/Prescriptions Prescriptions: New insulin glargine-yfgn 100 unit/mL (3 mL) Insulin Pen 25 unit subcut QHS Qty: 0 0RF ciprofloxacin HCl 500 mg tablet 500 mg PO BID Qty: 8 0RF metronidazole 500 mg tablet 500 mg PO Q8H Qty: 12 0RF ondansetron 8 mg tablet,disintegrating 8 mg PO Q8H PRN (Reason: nausea and vomiting) 5 Days Qty: 15 0RF docusate sodium [Colace] 100 mg capsule 200 mg PO BID Qty: 20 0RF Continued amlodipine 5 mg tablet 5 mg PO DAILY aspirin [Adult Low Dose Aspirin] 81 mg tablet,delayed release (DR/EC) 81 mg PO DAILY atorvastatin 20 mg tablet 20 mg PO QHS carbidopa-levodopa 25-250 mg tablet 1 tab PO TID therapeutic multivitamin Tablet 1 tab PO DAILY simethicone 80 mg tablet,chewable 80 mg PO BID Rx Instructions: after meals gabapentin 100 mg tablet 200 mg PO BID furosemide [Lasix] 20 mg tablet 20 mg PO DAILY acetaminophen [Pain Relief (acetaminophen)] 325 mg tablet 650 mg PO Q4H PRN (Reason: pain) magnesium hydroxide [Milk of Magnesia] 400 mg/5 mL suspension 2,400 mg PO DAILY PRN (Reason: constipation) cholecalciferol (vitamin D3) 125 mcg (5,000 unit) capsule 125 mcg PO FR acetaminophen 650 mg suppository 650 mg UT Q4H PRN (Reason: pain) bisacodyl 10 mg suppository 10 mg UT DAILY PRN (Reason: constipation) Enema 19-7 gram/118 mL enema 118 ml UT DAILY PRN (Reason: constipation) yesiaifenesin [Adult Tussin Chest Congestion] 100 mg/5 mL liquid 200 mg PO Q4H PRN (Reason: cough) benzonatate 100 mg capsule 100 mg PO TID PRN (Reason: cough) hydralazine 50 mg tablet 50 mg PO TID PRN (Reason: HTN) Discontinued Humulin R Regular U-100 Insuln 100 unit/mL solution 10 unit subcut BID metformin 500 mg tablet 500 mg PO DAILY sennosides-docusate sodium [2-in-1 Laxative] 8.6-50 mg tablet 1 tab-cap PO DAILY tramadol 50 mg tablet 50 mg PO Q6H PRN (Reason: pain) insulin glargine [Lantus Solostar U-100 Insulin] 100 unit/mL (3 mL) insulin pen 52 unit SUBCUT QHS Referrals / Follow Up: Lorena Rogers MD [Primary Care Provider] - Within 2 Weeks Disposition Disposition (needs filled in before D/C Order can be placed): [facility] Charges/Coding Visit Charges Inpatient E&M: 28139 Disch Hosp >30min
[2024-11-20 09:54] LABS: Anion Gap 12 (5-15); BUN 5 mg/dL (4-19); BUN/Creat Ratio 9.5 RATIO (10-20); Calcium,Total 9.1 mg/dL (7.6-11.0); Chloride 104 mmol/L (98-108); Creatinine, Serum 0.48 mg/dL (0.70-1.20); EST Glomerular Filtration Rate 93 (>60); Estimated Creatinine Clearance 58.41 ml/min (50-250); Glucose 155 mg/dL (70-99); Potassium 3.2 mmol/L (3.3-5.1); Sodium Level 141 mmol/L (133-145)
--- NOTE | 2024-11-20 10:19 | PHA.DC.MR.R ---
Pharmacy [place] Med Reconciliation Pharmacy Service has performed discharge medication reconciliation for this patient. The patient's discharge medication list was reviewed for discrepancies and discrepancies were resolved. Medications at Discharge Home Medications acetaminophen 325 mg tablet (Pain Relief (acetaminophen)) 650 mg PO Q4H PRN pain 11/17/24 acetaminophen 650 mg rectal suppository 650 mg MD Q4H PRN pain 11/17/24 amlodipine 5 mg tablet 5 mg PO DAILY 11/17/24 aspirin 81 mg tablet,delayed release (Adult Low Dose Aspirin) 81 mg PO DAILY 11/17/24 atorvastatin 20 mg tablet 20 mg PO QHS 11/17/24 benzonatate 100 mg capsule 100 mg PO TID PRN cough 11/17/24 bisacodyl 10 mg rectal suppository 10 mg MD DAILY PRN constipation 11/17/24 carbidopa 25 mg-levodopa 250 mg tablet 1 tab PO TID 11/17/24 cholecalciferol (vitamin D3) 125 mcg (5,000 unit) capsule 125 mcg PO FR 11/17/24 furosemide 20 mg tablet (Lasix) 20 mg PO DAILY 11/17/24 gabapentin 100 mg tablet 200 mg PO BID 11/17/24 guaifenesin 100 mg/5 mL oral liquid (Adult Tussin Chest Congestion) 200 mg PO Q4H PRN cough 11/17/24 hydralazine 50 mg tablet 50 mg PO TID PRN HTN 11/17/24 magnesium hydroxide 400 mg/5 mL oral suspension (Milk of Magnesia) 2,400 mg PO DAILY PRN constipation 11/17/24 simethicone 80 mg chewable tablet 80 mg PO BID 11/17/24 sodium phosphates 19 gram-7 gram/118 mL enema (Enema) 118 ml MD DAILY PRN constipation 11/17/24 therapeutic multivitamin 1 tab PO DAILY 11/17/24 ciprofloxacin HCl 500 mg tablet 500 mg PO BID #8 tabs 11/20/24 docusate sodium 100 mg capsule (Colace) 200 mg (2 x 100 mg) PO BID #20 caps 11/20/24 insulin glargine-yfgn 100 unit/mL (3 mL) subcutaneous pen 25 unit (0.25 mL) subcut QHS #0 mL 11/20/24 metronidazole 500 mg tablet 500 mg PO Q8H #12 tabs 11/20/24 ondansetron 8 mg disintegrating tablet 8 mg PO Q8H PRN nausea and vomiting 5 days #15 tabs 11/20/24
[2024-11-20] MEDS: Azithromycin 500 MG in 0.9% Normal Saline (250mL Bag) 250 ML 255 MG IV (10:34)
--- NOTE | 2024-11-20 11:09 | CASEMGMT ---
Addendum entered by Sera Shirley 11/20/24 13:50: Social Work Multiple phone calls placed to pt son Suresh with no answer and no VM set up. SW updated pt that son was not able to be notified of pt's discharge back to [facility]. TUAN Donohue Original Note: Social Work Per physician pt is ready for return to [facility] today. [facility] is able to accept. Discharge orders sent to [facility] via [facility].? Transportation arranged with [facility] for 1330 pickup via wheelchair van.? SW met with pt and they are agreeable to discharge plan as stated above.?SW attempted to call son to update, however no answer and VM not set up. Bedside nurse notified of discharge time. Disposition: [facility], skilled level of care TUAN Martinez
[2024-11-20 11:47] LABS: Bedside Glucose 257 mg/dL (74-106)
[2024-11-20] MEDS: Insulin Lispro 100 UNIT/ML INSULN.PEN SC (12:23)
--- NOTE | 2024-11-20 13:40 | PCA ---
Son & patient aware discharge time changed from 130pm to 2pm.
== END 2024-11-20 14:40 | DRG 389 ==
LOC: ED 18:13 → MS3 19:01
PROVIDERS: Internal Medicine Gastroenterology; Student in an Organized Health Care Education/Training Program; Emergency Provider Emergency Medicine; PCP Internal Medicine
PROC: 0DJD8ZZ Inspection of Lower Intestinal Tract, Via Natural or Artificial Opening Endoscopic (ICD-10-PCS; CPT 45330; principal; 2024-11-18 17:25)
DX: K56.7 Ileus, unspecified (principal); Z68.41 Body mass index [BMI] 40.0-44.9, adult; E11.9 Type 2 diabetes mellitus without complications; G20.A1 Parkinson's disease without dyskinesia, without mention of fluctuations; I10 Essential (primary) hypertension; Z79.4 Long term (current) use of insulin; K57.30 Diverticulosis of large intestine without perforation or abscess without bleeding; K59.00 Constipation, unspecified; K52.9 Noninfective gastroenteritis and colitis, unspecified; T40.425A Adverse effect of tramadol, initial encounter; E66.813 Obesity, class 3; Z88.0 Allergy status to penicillin; Z88.1 Allergy status to other antibiotic agents; Z79.82 Long term (current) use of aspirin; Z79.899 Other long term (current) drug therapy; Z90.710 Acquired absence of both cervix and uterus; Z98.51 Tubal ligation status
CPT/HCPCS: 36415; 74018; 74177; 80048; 80053; 81001; 82962; 83036; 83690; 85025; 85730; 93005; 97162; 97166; 97530; 99285; P9612; Q9967; A4216; J0744; J2405

== ENCOUNTER → 2024-12-22 05:00 | Outpatient (REF) | payer MEDICARE, SELFPAY ==
[2024-12-22 09:00] LABS: Hematocrit 38.1 % (37-47); Hemoglobin 12.6 g/dL (12.0-15.0); Mean Corp Hgb Conc 33.1 g/dL (32-36); Mean Corpuscular Hgb 31.9 pg (27.0-32.0); Mean Corpuscular Volume 96.5 fL (81-99); Mean Platelet Vol. 10.5 fl (6.2-12.0); Platelet Count 229 K/mm3 (150-450); RBC Distribution Width CV 13.2 % (11.6-14.6); RBC Distribution Width SD 47.1 fl (35.1-43.9); Red Blood Count 3.95 M/mm3 (4.2-5.4); White Blood Count 7.1 K/mm3 (4.4-11.0)
[2024-12-22 09:11] LABS: Anion Gap 12 (5-15); BUN 13 mg/dL (4-19); BUN/Creat Ratio 26.2 RATIO (10-20); Calcium,Total 9.6 mg/dL (7.6-11.0); Carbon Dioxide 28.4 mmol/L (21.0-32.0); Chloride 99 mmol/L (98-108); Creatinine, Serum 0.49 mg/dL (0.70-1.20); EST Glomerular Filtration Rate 93 (>60); Glucose 163 mg/dL (70-99); Potassium 3.9 mmol/L (3.3-5.1); Sodium Level 139 mmol/L (133-145)
== END ==
LOC: OLS.SW 05:00
PROVIDERS: PCP Internal Medicine; Visit Provider Internal Medicine
DX: G20.A1 Parkinson's disease without dyskinesia, without mention of fluctuations (principal); K63.89 Other specified diseases of intestine; I10 Essential (primary) hypertension; E11.9 Type 2 diabetes mellitus without complications
CPT/HCPCS: 36415; 80048; 83735; 85027

== ENCOUNTER → 2024-12-29 | Outpatient (REF) | payer MEDICARE, SELFPAY ==
[2024-12-29 09:47] LABS: Hematocrit 35.3 % (37-47); Hemoglobin 11.7 g/dL (12.0-15.0); Mean Corp Hgb Conc 33.1 g/dL (32-36); Mean Corpuscular Hgb 31.8 pg (27.0-32.0); Mean Corpuscular Volume 95.9 fL (81-99); Mean Platelet Vol. 11.1 fl (6.2-12.0); Platelet Count 260 K/mm3 (150-450); RBC Distribution Width CV 13.2 % (11.6-14.6); RBC Distribution Width SD 46.5 fl (35.1-43.9); Red Blood Count 3.68 M/mm3 (4.2-5.4); White Blood Count 8.7 K/mm3 (4.4-11.0)
[2024-12-29 10:08] LABS: Hemoglobin A1c 8.5 % (<=5.6)
[2024-12-29 10:15] LABS: ALB/GLOB Ratio 1.2 RATIO (0.9-2.4); AST(SGOT) 21 U/L (<=31); Alanine Aminotransfer ALT/SGPT 22 U/L (<=34); Albumin, Serum 3.9 g/dL (3.4-4.8); Alkaline Phosphatase 93 U/L (35-104); Anion Gap 15 (5-15); BUN 18 mg/dL (4-19); BUN/Creat Ratio 36.2 RATIO (10-20); Calcium,Total 9.4 mg/dL (7.6-11.0); Carbon Dioxide 23.9 mmol/L (21.0-32.0); Chloride 97 mmol/L (98-108); EST Glomerular Filtration Rate 92 (>60); Globulin 3.3 g/dL (2.2-4.2); Glucose 330 mg/dL (70-99); Protein, Total 7.1 g/dL (5.9-8.4); Sodium Level 136 mmol/L (133-145); Total Bilirubin 0.18 mg/dL (0.00-1.30)
== END ==
LOC: OLS.SW 05:00
PROVIDERS: PCP Internal Medicine; Visit Provider Internal Medicine
DX: I10 Essential (primary) hypertension (principal); E11.9 Type 2 diabetes mellitus without complications
CPT/HCPCS: 36415; 80053; 83036; 85027

== ENCOUNTER → 2025-01-14 05:00 | Outpatient (REF) | payer MEDICARE, SELFPAY ==
[2025-01-14 09:18] LABS: Anion Gap 14 (5-15); BUN 18 mg/dL (4-19); BUN/Creat Ratio 36.2 RATIO (10-20); Calcium,Total 9.2 mg/dL (7.6-11.0); Carbon Dioxide 26.4 mmol/L (21.0-32.0); Chloride 98 mmol/L (98-108); Glucose 211 mg/dL (70-99); Magnesium 1.8 mg/dL (1.5-2.2); Potassium 4.0 mmol/L (3.3-5.1); Vitamin D,25 Hydroxy 43.5 ng/mL (30-100)
== END ==
LOC: OLS.SW 05:00
PROVIDERS: PCP Internal Medicine; Visit Provider Internal Medicine
DX: E11.9 Type 2 diabetes mellitus without complications (principal); I10 Essential (primary) hypertension; Z79.899 Other long term (current) drug therapy; G20.A1 Parkinson's disease without dyskinesia, without mention of fluctuations
CPT/HCPCS: 36415; 80048; 82306; 83735

== ENCOUNTER → 2025-01-26 | Outpatient (REF) | payer MEDICARE, SELFPAY ==
[2025-01-26 08:52] LABS: Hematocrit 33.2 % (37-47); Hemoglobin 10.8 g/dL (12.0-15.0); Mean Corp Hgb Conc 32.5 g/dL (32-36); Mean Corpuscular Volume 97.9 fL (81-99); Mean Platelet Vol. 10.3 fl (6.2-12.0); Platelet Count 253 K/mm3 (150-450); RBC Distribution Width CV 13.5 % (11.6-14.6); RBC Distribution Width SD 48.1 fl (35.1-43.9); Red Blood Count 3.39 M/mm3 (4.2-5.4); White Blood Count 7.3 K/mm3 (4.4-11.0)
[2025-01-26 09:07] LABS: AST(SGOT) 18 U/L (<=31); Alanine Aminotransfer ALT/SGPT 12 U/L (<=34); Albumin, Serum 3.5 g/dL (3.4-4.8); Alkaline Phosphatase 97 U/L (35-104); Anion Gap 13 (5-15); BUN 14 mg/dL (4-19); BUN/Creat Ratio 28.7 RATIO (10-20); CRP 18.30 mg/L (0.0-3.0); Calcium,Total 9.5 mg/dL (7.6-11.0); Carbon Dioxide 27.7 mmol/L (21.0-32.0); Chloride 101 mmol/L (98-108); Globulin 3.4 g/dL (2.2-4.2); Glucose 131 mg/dL (70-99); Potassium 4.0 mmol/L (3.3-5.1); Uric Acid 7.6 mg/dL (2.6-6.0)
== END ==
LOC: OLS.SW 05:00
PROVIDERS: PCP Internal Medicine; Visit Provider Internal Medicine
DX: I10 Essential (primary) hypertension (principal); E11.9 Type 2 diabetes mellitus without complications; G20.A1 Parkinson's disease without dyskinesia, without mention of fluctuations; K63.89 Other specified diseases of intestine
CPT/HCPCS: 36415; 80053; 84550; 85027; 86140

== ENCOUNTER → 2025-02-16 | Outpatient (REF) | payer MEDICARE, SELFPAY ==
[2025-02-16 09:16] LABS: Anion Gap 13 (5-15); BUN 28 mg/dL (4-19); BUN/Creat Ratio 45.5 RATIO (10-20); Calcium,Total 9.3 mg/dL (7.6-11.0); Carbon Dioxide 27.4 mmol/L (21.0-32.0); Chloride 100 mmol/L (98-108); Glucose 168 mg/dL (70-99); Magnesium 1.8 mg/dL (1.5-2.2); Potassium 4.1 mmol/L (3.3-5.1)
== END ==
LOC: OLS.SW 04:00
PROVIDERS: PCP Internal Medicine; Referring Provider Internal Medicine; Visit Provider Internal Medicine
DX: I10 Essential (primary) hypertension (principal); G20.A1 Parkinson's disease without dyskinesia, without mention of fluctuations; E11.9 Type 2 diabetes mellitus without complications
CPT/HCPCS: 36415; 80048; 83735

== ENCOUNTER → 2025-02-23 04:00 | Outpatient (REF) | payer MEDICARE, SELFPAY ==
[2025-02-23 07:39] LABS: Hematocrit 33.8 % (37-47); Hemoglobin 11.1 g/dL (12.0-15.0); Mean Corp Hgb Conc 32.8 g/dL (32-36); Mean Corpuscular Volume 99.4 fL (81-99); Mean Platelet Vol. 10.3 fl (6.2-12.0); Platelet Count 202 K/mm3 (150-450); RBC Distribution Width CV 14.3 % (11.6-14.6); RBC Distribution Width SD 51.7 fl (35.1-43.9); Red Blood Count 3.40 M/mm3 (4.2-5.4); White Blood Count 7.0 K/mm3 (4.4-11.0)
[2025-02-23 07:53] LABS: AST(SGOT) 18 U/L (<=31); Alanine Aminotransfer ALT/SGPT 12 U/L (<=34); Albumin, Serum 3.8 g/dL (3.4-4.8); Alkaline Phosphatase 91 U/L (35-104); Anion Gap 13 (5-15); BUN 21 mg/dL (4-19); BUN/Creat Ratio 35.9 RATIO (10-20); Calcium,Total 9.7 mg/dL (7.6-11.0); Carbon Dioxide 28.6 mmol/L (21.0-32.0); Chloride 100 mmol/L (98-108); Globulin 3.1 g/dL (2.2-4.2); Glucose 114 mg/dL (70-99); Potassium 3.7 mmol/L (3.3-5.1)
== END ==
LOC: OLS.SW 04:00
PROVIDERS: PCP Internal Medicine; Referring Provider Internal Medicine; Visit Provider Internal Medicine
DX: I10 Essential (primary) hypertension (principal); E11.9 Type 2 diabetes mellitus without complications
CPT/HCPCS: 36415; 80053; 85027

== ENCOUNTER → 2025-02-25 | Outpatient (REF) | payer MEDICARE, SELFPAY ==
[2025-02-25 11:22] LABS: Vitamin D,25 Hydroxy 38.9 ng/mL (30-100)
== END ==
LOC: OLS.SW 05:00
PROVIDERS: PCP Internal Medicine; Visit Provider Internal Medicine
DX: I10 Essential (primary) hypertension (principal); E11.9 Type 2 diabetes mellitus without complications; E55.9 Vitamin D deficiency, unspecified
CPT/HCPCS: 36415; 82306

== ENCOUNTER → 2025-03-23 05:00 | Outpatient (REF) | payer MEDICARE, SELFPAY ==
[2025-03-23 09:23] LABS: Hematocrit 35.1 % (37-47); Hemoglobin 11.7 g/dL (12.0-15.0); Mean Corp Hgb Conc 33.3 g/dL (32-36); Mean Corpuscular Volume 98.9 fL (81-99); Mean Platelet Vol. 10.6 fl (6.2-12.0); Platelet Count 210 K/mm3 (150-450); RBC Distribution Width CV 13.4 % (11.6-14.6); RBC Distribution Width SD 48.5 fl (35.1-43.9); Red Blood Count 3.55 M/mm3 (4.2-5.4); White Blood Count 5.7 K/mm3 (4.4-11.0)
[2025-03-23 09:42] LABS: AST(SGOT) 25 U/L (<=31); Alanine Aminotransfer ALT/SGPT 17 U/L (<=34); Albumin, Serum 3.8 g/dL (3.4-4.8); Alkaline Phosphatase 89 U/L (35-104); Anion Gap 15 (5-15); BUN 17 mg/dL (4-19); BUN/Creat Ratio 33.5 RATIO (10-20); Calcium,Total 9.4 mg/dL (7.6-11.0); Carbon Dioxide 27.2 mmol/L (21.0-32.0); Chloride 100 mmol/L (98-108); Globulin 3.0 g/dL (2.2-4.2); Glucose 194 mg/dL (70-99); Potassium 3.6 mmol/L (3.3-5.1)
== END ==
LOC: OLS.SW 05:00
PROVIDERS: PCP Internal Medicine; Visit Provider Internal Medicine
DX: I10 Essential (primary) hypertension (principal); E78.5 Hyperlipidemia, unspecified; E11.9 Type 2 diabetes mellitus without complications; R60.0 Localized edema
CPT/HCPCS: 36415; 80053; 83036; 85027

== ENCOUNTER → 2025-04-20 | Outpatient (REF) | payer MEDICARE, SELFPAY ==
[2025-04-20 09:57] LABS: Hematocrit 38.0 % (37-47); Hemoglobin 12.6 g/dL (12.0-15.0); Mean Corp Hgb Conc 33.2 g/dL (32-36); Mean Corpuscular Volume 99.2 fL (81-99); Mean Platelet Vol. 11.1 fl (6.2-12.0); Platelet Count 223 K/mm3 (150-450); RBC Distribution Width CV 13.5 % (11.6-14.6); RBC Distribution Width SD 48.9 fl (35.1-43.9); Red Blood Count 3.83 M/mm3 (4.2-5.4); White Blood Count 6.1 K/mm3 (4.4-11.0)
[2025-04-20 10:11] LABS: AST(SGOT) 36 U/L (<=31); Alanine Aminotransfer ALT/SGPT 30 U/L (<=34); Albumin, Serum 3.9 g/dL (3.4-4.8); Alkaline Phosphatase 117 U/L (35-104); Anion Gap 16 (5-15); BUN 22 mg/dL (4-19); BUN/Creat Ratio 35.3 RATIO (10-20); Calcium,Total 9.3 mg/dL (7.6-11.0); Carbon Dioxide 26.5 mmol/L (21.0-32.0); Chloride 97 mmol/L (98-108); Globulin 3.4 g/dL (2.2-4.2); Glucose 257 mg/dL (70-99); Potassium 3.5 mmol/L (3.3-5.1)
== END ==
LOC: OLS.SW 05:00
PROVIDERS: PCP Internal Medicine; Visit Provider Internal Medicine
DX: G20.C Parkinsonism, unspecified (principal); Z79.899 Other long term (current) drug therapy
CPT/HCPCS: 36415; 80053; 85027

== ENCOUNTER → 2025-05-18 | Outpatient (REF) | payer MEDICARE, SELFPAY ==
[2025-05-18 08:43] LABS: Hematocrit 39.0 % (37-47); Hemoglobin 12.8 g/dL (12.0-15.0); Mean Corp Hgb Conc 32.8 g/dL (32-36); Mean Corpuscular Volume 99.2 fL (81-99); Mean Platelet Vol. 10.6 fl (6.2-12.0); Platelet Count 232 K/mm3 (150-450); RBC Distribution Width CV 13.5 % (11.6-14.6); RBC Distribution Width SD 49.1 fl (35.1-43.9); Red Blood Count 3.93 M/mm3 (4.2-5.4); White Blood Count 7.1 K/mm3 (4.4-11.0)
[2025-05-18 09:39] LABS: AST(SGOT) 30 U/L (<=31); Alanine Aminotransfer ALT/SGPT 24 U/L (<=34); Albumin, Serum 3.8 g/dL (3.4-4.8); Alkaline Phosphatase 115 U/L (35-104); Anion Gap 13 (5-15); BUN 21 mg/dL (4-19); BUN/Creat Ratio 32.6 RATIO (10-20); Calcium,Total 9.8 mg/dL (7.6-11.0); Carbon Dioxide 28.0 mmol/L (21.0-32.0); Chloride 100 mmol/L (98-108); Globulin 3.6 g/dL (2.2-4.2); Glucose 262 mg/dL (70-99); Potassium 3.9 mmol/L (3.3-5.1)
== END ==
LOC: OLS.SW 05:00
PROVIDERS: PCP Internal Medicine; Visit Provider Internal Medicine
DX: E11.9 Type 2 diabetes mellitus without complications (principal)
CPT/HCPCS: 36415; 80053; 83036; 85027

== ENCOUNTER → 2025-06-22 | Outpatient (REF) | payer MEDICARE, SELFPAY ==
[2025-06-22 10:32] LABS: Cholesterol 159 mg/dL (<=200); Low Density Lipoprotein Calc. 71 mg/dL; Triglycerides 318 mg/dL; Very Low Density Lipoprotein 64 mg/dL (5-40); cholesterol:hdl ratio screen 4.29
== END ==
LOC: OLS.SW 04:00
PROVIDERS: PCP Internal Medicine; Referring Provider Internal Medicine; Visit Provider Internal Medicine
DX: E78.5 Hyperlipidemia, unspecified (principal); Z79.899 Other long term (current) drug therapy
CPT/HCPCS: 36415; 80061